=== PATIENT | male | born 1955 | race Caucasian/White ===

== ENCOUNTER 2017-02-13 09:22 | Inpatient (IN) | payer SELFPAY ==
[2017-02-13] VITALS (12 sets, daily range): BP systolic 113–140; BP diastolic 77–92; PULSE 98–116; RESP 14–28; TEMP 97.6–98.5; O2SAT 93–100
[~2017-02-13] VITALS: Ht 177.8 cm; Wt 74.2 kg
[2017-02-13 09:48] LABS: BLOOD GAS BASE EXCESS -4.8 mmol/L (-2-2); BLOOD GAS HCO3 19 mmol/L (22-26); BLOOD GAS METHEMOGLOBIN 0.6 % (0-2); BLOOD GAS O2 HGB SATURATION 93 % (90-100); BLOOD GAS OXYGEN CONTENT 24.6 Vol % (12.0-20.0); BLOOD GAS PCO2 29 mmHg (38-42); BLOOD GAS PO2 74 mmHG (61-120); BLOOD GAS TOTAL HGB 18.8 G/DL (12.0-16.0); TEMP CORR TO 98.6
[2017-02-13 09:49] LABS: CRITICAL VALUE NO; DRAW SITE LT RADIAL; LITER FLOW 4 L/M; NUMBER OF ARTERIAL PUNCTURES 2; OXYGEN DEVICE NASAL CANNULA; STAT YES; ULNAR PULSE PRESENT
[2017-02-13 09:53] LABS: AUTOMATED NEUTROPHIL # 16.8 TH/MM3 (1.8-7.7); BASOPHIL % 0.2 % (0.0-2.0); HEMATOCRIT 61.7 % (39.0-51.0); LYMPH % 6.7 % (9.0-44.0); LYMPHOCYTE # 1.4 TH/MM3 (1.0-4.8); MEAN CELL VOLUME 91.5 FL (80.0-100.0); MEAN CORPUSCULAR HEMOGLOBIN 30.1 PG (27.0-34.0); MEAN CORPUSCULAR HGB CONC 32.9 % (32.0-36.0); MONO % 12.1 % (0.0-8.0); PLATELET COUNT 180 TH/MM3 (150-450); RED BLOOD COUNT 6.74 MIL/MM3 (4.50-5.90); RED CELL DISTRIBUTION WIDTH 14.1 % (11.6-17.2); WHITE BLOOD COUNT 20.8 TH/MM3 (4.0-11.0)
[2017-02-13 09:56] LABS: HEMO FLAGS AUTO DIFF
--- NOTE | 2017-02-13 09:56 | RADRPT ---
EXAM DATE/TIME: 02/13/2017 09:48 [facility] COMPARISON: No previous studies available for comparison. INDICATIONS : Unresponsive MEDICAL HISTORY : Unresponsive SURGICAL HISTORY : Unresponsive ENCOUNTER: Initial ACUITY: 1 day PAIN SCORE: Non-responsive. LOCATION: Bilateral chest FINDINGS: A single view of the chest demonstrates the lungs to be symmetrically aerated without evidence of mas s, infiltrate or effusion. The cardiomediastinal contours are unremarkable. Degenerative changes ab out left shoulder. CONCLUSION: No acute disease. Azeem Hamilton MD FACR on February 13, 2017 at 9:54 Board Certified Radiologist. This report was verified electronically.
[2017-02-13 10:03] LABS: BLOOD, URINE MOD (NEG); COMMENT (UR) CATH-CULT NOT IND; CULTURE IF INDICATED CATH CULTURE NOT IND; GLUCOSE,URINE NEG (NEG); KETONE, URINE 10 mg/dL (NEG); MUCUS URINE FEW /lpf (OCC); NITRITE,URINE NEG (NEG); URINE COLOR YELLOW (YELLW/STRAW)
[2017-02-13 10:03] LABS: APTT (PATIENT) 22.4 SEC (24.3-30.1); INTERNATIONAL NORMALIZED RATIO 1.1 RATIO; PROTHROMBIN TIME - PATIENT 12.6 SEC (9.8-11.6)
[2017-02-13 10:16] LABS: ANION GAP 11 MEQ/L (5-15); AST (GOT) 18 U/L (15-37); BICARBONATE 24.8 MEQ/L (21.0-32.0); BLOOD UREA NITROGEN 74 MG/DL (7-18); CHLORIDE 113 MEQ/L (98-107); GLOMERULAR FILTRATION RATE 43 ML/MIN (>89); SODIUM (NA) 149 MEQ/L (136-145)
[2017-02-13 10:22] LABS: ALKALINE PHOSPHATASE 98 U/L (45-117); ALT (GPT) 28 U/L (12-78); TOTAL BILIRUBIN ADULT 1.3 MG/DL (0.2-1.0)
[2017-02-13 10:23] LABS: NEUTROPHIL # MANUAL DIFF 16.6 TH/MM3 (1.8-7.7); POLYS (SEG NEUTROPHILS) 80 % (16-70); WBC DIFF SAMPLE 100
[2017-02-13 10:24] LABS: CREATINE KINASE 65 U/L (39-308); PLATELET ESTIMATE SMEAR NORMAL (NORMAL); PLATELET MORPHOLOGY NORMAL (NORMAL); SCAN/DIFF FINAL DIFF MANUAL
--- NOTE | 2017-02-13 10:40 | RADRPT ---
EXAM DATE/TIME: 02/13/2017 10:23 [facility] COMPARISON: No previous studies available for comparison. INDICATIONS : Altered mental status. RADIATION DOSE: 34.65 CTDIvol (mGy) MEDICAL HISTORY : Non-responsive. SURGICAL HISTORY : Non-responsive. ENCOUNTER: Initial ACUITY: 1 day PAIN SCALE: Non-responsive LOCATION: cranial TECHNIQUE: Multiple contiguous axial images were obtained of the head. Using automated exposure control and adj ustment of the mA and/or kV according to patient size, radiation dose was kept as low as reasonably a chievable to obtain optimal diagnostic quality images. DICOM format image data is available electro nically for review and comparison. FINDINGS: Large bland apparent left MCA infarct is present with significant localized mass effect. There is 1. 7 cm left to right shift. Minimal lenticulostriate hemorrhage is evident. The right hemisphere is u nremarkable. Posterior fossa appears normal. CONCLUSION: Large subacute infarct left MCA territory with with lenticulostriate hemorrhage hemor rhage. Significant mass effect is evident. This is probably 3-5 day is old. Azeem Hamilton MD FACR on February 13, 2017 at 10:35 Board Certified Radiologist. This report was verified electronically.
--- NOTE | 2017-02-13 10:51 | PD ---
HPI Chief Complaint: Neuro Symptoms/ Deficits Time Seen by Provider: 09:32 Travel History International Travel<30 days: No (UNABLE TO ASSESS ) Contact w/Intl Traveler<30days: No (UNABLE TO ASSESS ) Traveled to known affect area: No (UNABLE TO ASSESS ) History of Present Illness HPI This is a reported 62-year-old male with a questionable history of stroke disorder, who presents via EMS after he was found in his apartment. He was last seen Thursday. According to his neighbors who called police for well-being check, he is usually awake early in gets his paper. His paper had not been picked up since Thursday. The patient is nonverbal and unable to give any history. We do not have a name. One of the floor nurses came down to state that her boyfriend had called 911. When paramedics arrived, they found him laying in bed in a pool of urine. His hand and entire right side of his back is excoriated and blanched because of laying in wet urine. The patient is awake but nonverbal. He will somewhat acknowledge you but will try to follow commands but is having difficulty. PFSH Social History Tobacco Use: No (unknown) Allergies-Medications (Allergen,Severity, Reaction): Coded Allergies: Unable to Assess (Verified Allergy, Unknown, 02/13/17) Review of Systems ROS Limitations: Clinical Condition (unable to obtain review of systems secondary to the patient's current clinical condition.), Altered Mental Status Except as stated in HPI: all other systems reviewed are Neg Physical Exam Narrative GENERAL: Well-developed well-nourished male who is nonverbal and awake. SKIN: Patient has contracted right hand. There is blanching of his hand and entire right side from laying in urine. HEAD: Atraumatic. Normocephalic. EYES: Pupils equal and round at 2. No scleral icterus. No injection or drainage. ENT: No nasal bleeding or discharge. Mucous membranes are dry. NECK: Trachea midline. No JVD. CARDIOVASCULAR: Tachycardic with a rate in the low 100s. No murmur appreciated. RESPIRATORY: No accessory muscle use. Clear to auscultation. Breath sounds equal bilaterally and tachypnea. GASTROINTESTINAL: Abdomen soft, non-tender, nondistended. MUSCULOSKELETAL: Contracted right upper extremity/hand. Blanching as above. NEUROLOGICAL: Awake and nonverbal. The patient is not moving his right upper or right lower extremity. He is moving his left upper extremity and left lower extremity and attempts to move to command. Data Data Last Documented VS Vital Signs Date Time Temp Pulse Resp B/P (MAP) Pulse Ox O2 Delivery O2 Flow Rate FiO2 02/13/17 10:51 98 22 128/85 (99) 100 Nasal Cannula 4.00 02/13/17 09:25 97.6 Orders Orders Electrocardiogram (02/13/17:33) Complete Blood Count With Diff (02/13/17) Comprehensive Metabolic Panel (02/13/17) Prothrombin Time / Inr (Pt) (02/13/17) Act Partial Throm Time (Ptt) (02/13/17) Lactic Acid Sepsis Protocol (02/13/17) Ckmb (Isoenzyme) Profile (02/13/17:) Troponin I (02/13/17:) Urinalysis - C+S If Indicated (02/13/17) Blood Culture (02/13/17:) Chest, Single Ap (02/13/17:) Arterial Blood Gas (Abg) (02/13/17:) Blood Glucose (02/13/17:) Ecg Monitoring (02/13/17) Iv Access Insert/Monitor (02/13/17:) Oximetry (02/13/17:33) Oxygen Administration (02/13/17:) Urinary Catheter Insert/Apply (02/13/17:) Ct Brain W/O Iv Contrast(Rout) (02/13/17:33) Labs Laboratory Tests Test 02/13/17:33 02/13/17 09:35 02/13/17 09:40 02/13/17 09:45 Blood Gas Puncture Site LT RADIAL Blood Gas Patient Temperature 98.6 Blood Gas HCO3 19 mmol/L Blood Gas Base Excess -4.8 mmol/L Blood Gas Oxygen Saturation 93 % Arterial Blood pH 7.43 Arterial Blood Partial Pressure CO2 29 mmHg Arterial Blood Partial Pressure O2 74 mmHG Arterial Blood Oxygen Content 24.6 Vol % Arterial Blood Carboxyhemoglobin 1.0 % Arterial Blood Methemoglobin 0.6 % Blood Gas Hemoglobin 18.8 G/DL Oxygen Delivery Device NASAL CANNULA Blood Gas Liter Flow 4 L/M White Blood Count 20.8 TH/MM3 Red Blood Count 6.74 MIL/MM3 Hemoglobin 20.3 GM/DL Hematocrit 61.7 % Mean Corpuscular Volume 91.5 FL Mean Corpuscular Hemoglobin 30.1 PG Mean Corpuscular Hemoglobin Concent 32.9 % Red Cell Distribution Width 14.1 % Platelet Count 180 TH/MM3 Mean Platelet Volume 8.5 FL Neutrophils (%) (Auto) 81.0 % Lymphocytes (%) (Auto) 6.7 % Monocytes (%) (Auto) 12.1 % Eosinophils (%) (Auto) 0.0 % Basophils (%) (Auto) 0.2 % Neutrophils # (Auto) 16.8 TH/MM3 Lymphocytes # (Auto) 1.4 TH/MM3 Monocytes # (Auto) 2.5 TH/MM3 Eosinophils # (Auto) 0.0 TH/MM3 Basophils # (Auto) 0.0 TH/MM3 CBC Comment AUTO DIFF Differential Total Cells Counted 100 Neutrophils % (Manual) 80 % Lymphocytes % 9 % Monocytes % 11 % Neutrophils # (Manual) 16.6 TH/MM3 Differential Comment FINAL DIFF MANUAL Platelet Estimate NORMAL Platelet Morphology Comment NORMAL Prothrombin Time 12.6 SEC Prothromb Time International Ratio 1.1 RATIO Activated Partial Thromboplast Time 22.4 SEC Blood Urea Nitrogen 74 MG/DL Creatinine 1.42 MG/DL Random Glucose 142 MG/DL Total Protein 8.1 GM/DL Albumin 3.1 GM/DL Calcium Level 9.1 MG/DL Alkaline Phosphatase 98 U/L Aspartate Amino Transf (AST/SGOT) 18 U/L Alanine Aminotransferase (ALT/SGPT) 28 U/L Total Bilirubin 1.3 MG/DL Sodium Level 149 MEQ/L Potassium Level 5.0 MEQ/L Chloride Level 113 MEQ/L Carbon Dioxide Level 24.8 MEQ/L Anion Gap 11 MEQ/L Estimat Glomerular Filtration Rate 43 ML/MIN Total Creatine Kinase 65 U/L Troponin I 0.20 NG/ML Lactic Acid Level 3.4 mmol/L Urine Color YELLOW Urine Turbidity CLEAR Urine pH 6.0 Urine Specific [place] 1.031 Urine Protein 100 mg/dL Urine Glucose (UA) NEG mg/dL Urine Ketones 10 mg/dL Urine Occult Blood MOD Urine Nitrite NEG Urine Bilirubin NEG Urine Urobilinogen 2.0 MG/DL Urine Leukocyte Esterase NEG Urine RBC 5 /hpf Urine WBC 3 /hpf Urine Mucus FEW /lpf Microscopic Urinalysis Comment CATH-CULT NOT IND MDM Medical Decision Making Medical Screen Exam Complete: Yes Emergency Medical Condition: Yes Differential Diagnosis Embolic versus hemorrhagic CVA versus metabolic derangement versus sepsis Narrative Course Reported 62-year-old male presents after being last seen Thursday. The patient apparently was found in a puddle of urine in bed. The patient is awake however nonverbal. The patient has a large left MCA stroke with lenticular striate hemorrhage. Patient is hemoconcentrated. He is hypernatremic. He has acute kidney injury. His white blood cell count is 21,000. Case was discussed with Dr. Jatinder Rolle, slip presser, who agrees to admit the patient to his service. He has been given 2 L of IVD fluid. He'll be admitted to the surgical intensive care unit. Critical Care Narrative Aggregate critical care time was 45 minutes. Time to perform other separately billable procedures was not included in the critical care time. My time did not include minutes spent treating any other patients simultaneously or on activities that did not directly contribute to the patient's treatment. The services I provided to this patient were to treat and/or prevent clinically significant deterioration that could result in: I provided critical care services requiring my management, as noted below: Chart data review, documentation time, medication orders and management, vital sign assessments/reviewing monitor data, ordering and reviewing lab tests, ordering and interpreting/reviewing x-rays and diagnostic studies, care of the patient and discussion of the patient with the admitting physicians. Sepsis Criteria SIRS Criteria (2 or more): Heart rate over 90, RR > 20 or PaCO2 < 32, WBC > 76699, < 4000 or > 10% bands Severe Sepsis (+one): Organ Dysfunction Diagnosis Primary Impression: large left MCA CVA with hemorrhage Additional Impressions: Leukocytosis Acute renal failure Acute hypernatremia Admitting Information Admitting Physician Requests: Admit Chacorta Martinez MD Feb 13, 2017 10:51
[2017-02-13] MEDS ORDERED: CHLORHEXIDINE GLUCONATE 2 % 1 PACK (2 CLOTHS) TOP PRN (11:00)
[2017-02-13] MEDS ORDERED: MISCELLANEOUS NURSING INFORMATION XX SCH (11:00)
[2017-02-13] MEDS ORDERED: SENNOSIDES 8.6 MG TAB PO PRN (11:00)
[2017-02-13] MEDS ORDERED: MAGNESIUM HYDROXIDE SUSP 30 ML CUP PO PRN (11:00)
[2017-02-13] MEDS ORDERED: ACETAMINOPHEN 325 MG TAB PO PRN (11:00)
[2017-02-13] MEDS ORDERED: ONDANSETRON HCL 4 MG/2 ML VIAL IV PUSH PRN (11:00)
[2017-02-13] MEDS ORDERED: RESP: ALBUTEROL 2.5 MG/IPRATROPIUM 0.5 MG NEB (PRN) INH (11:00)
[2017-02-13] MEDS ORDERED: LACTULOSE SYRUP 20 GM/30 ML CUP PO PRN (11:00)
[2017-02-13] MEDS ORDERED: BISACODYL 10 MG SUPP RECTAL PRN (11:00)
[2017-02-13] MEDS ORDERED: PROPOFOL 1000 MG/100 ML INJ 100 ML IV PRN (11:00)
[2017-02-13 11:47] LABS: LACTIC ACID GHOST NOT REPORTABLE
[2017-02-13] MEDS ORDERED: HEPARIN SODIUM - SQ 10,000 UNITS/ML VIAL SQ SCH (12:00)
--- NOTE | 2017-02-13 12:25 | HHI.HP ---
[facility] Service Critical Care Medicine Primary Care Physician Unknown Admission Diagnosis Left MCA infart, dehydration, hypernatremia Diagnosis: (1) Left acute arterial ischemic stroke, MCA (middle cerebral artery) Diagnosis: Principal (2) Acute hypernatremia Diagnosis: Principal (3) Acute renal failure Diagnosis: Principal (4) Leukocytosis Diagnosis: Principal Chief Complaint: Briought in by EMS. Travel History International Travel<30 Days: No (UNABLE TO ASSESS ) Contact w/Intl Traveler <30 Da: No (UNABLE TO ASSESS ) Traveled to Known Affected Are: No (UNABLE TO ASSESS ) History of Present Illness Nonverbal, dishevelled man found at wellness check after not being seen for 5 days. Unable to move right side. CT head reveals several day old left hemispheric stroke. Found in urine and unable to follow commands. No additional information available, no family. Review of Systems ROS Unobtainable. Past Family Social History Allergies: Coded Allergies: Unable to Assess (Verified Allergy, Unknown, 02/13/17) Past Medical History Social History Tobacco Use: No (unknown) Allergies-Medications Allergies-Medications (Allergen,Severity, Reaction): Coded Allergies: Unable to Assess (Verified Allergy, Unknown, 02/13/17) Physical Exam Vital Signs Vital Signs Date Time Temp Pulse Resp B/P (MAP) Pulse Ox O2 Delivery O2 Flow Rate FiO2 02/13/17 12:00 109 14 130/82 (98) 98 Nasal Cannula 4.00 02/13/17 10:51 98 22 128/85 (99) 100 Nasal Cannula 4.00 02/13/17 09:42 24 99 Nasal Cannula 4.00 02/13/17 09:37 4.00 02/13/17 09:30 94 Nasal Cannula 4.00 02/13/17 09:25 97.6 115 28 140/90 (107) Physical Exam Gen: Nonverbal. Head: Atraumatic. Neck: Supple, airway patent. Lungs: Few mobile secretions, good alva air movement. Heart: NL S1S2, RRR. Abdomen: Nondistended, soft. No guarding. Extremities: Warm, well perfused. Red skin right side. Neuro: Right paresis. No speech. JEMMA at 2 mm. Moves left arm and leg spontaneously. Laboratory Laboratory Tests Test 02/13/17 09:33 02/13/17 09:35 02/13/17 09:40 02/13/17 09:45 Blood Gas Puncture Site LT RADIAL Blood Gas Patient Temperature 98.6 Blood Gas HCO3 19 Blood Gas Base Excess -4.8 Blood Gas Oxygen Saturation 93 Arterial Blood pH 7.43 Arterial Blood Partial Pressure CO2 29 Arterial Blood Partial Pressure O2 74 Arterial Blood Oxygen Content 24.6 Arterial Blood Carboxyhemoglobin 1.0 Arterial Blood Methemoglobin 0.6 Blood Gas Hemoglobin 18.8 Oxygen Delivery Device NASAL CANNULA Blood Gas Liter Flow 4 White Blood Count 20.8 Red Blood Count 6.74 Hemoglobin 20.3 Hematocrit 61.7 Mean Corpuscular Volume 91.5 Mean Corpuscular Hemoglobin 30.1 Mean Corpuscular Hemoglobin Concent 32.9 Red Cell Distribution Width 14.1 Platelet Count 180 Mean Platelet Volume 8.5 Neutrophils (%) (Auto) 81.0 Lymphocytes (%) (Auto) 6.7 Monocytes (%) (Auto) 12.1 Eosinophils (%) (Auto) 0.0 Basophils (%) (Auto) 0.2 Neutrophils # (Auto) 16.8 Lymphocytes # (Auto) 1.4 Monocytes # (Auto) 2.5 Eosinophils # (Auto) 0.0 Basophils # (Auto) 0.0 CBC Comment AUTO DIFF Differential Total Cells Counted 100 Neutrophils % (Manual) 80 Lymphocytes % 9 Monocytes % 11 Neutrophils # (Manual) 16.6 Differential Comment FINAL DIFF MANUAL Platelet Estimate NORMAL Platelet Morphology Comment NORMAL Prothrombin Time 12.6 Prothromb Time International Ratio 1.1 Activated Partial Thromboplast Time 22.4 Blood Urea Nitrogen 74 Creatinine 1.42 Random Glucose 142 Total Protein 8.1 Albumin 3.1 Calcium Level 9.1 Alkaline Phosphatase 98 Aspartate Amino Transf (AST/SGOT) 18 Alanine Aminotransferase (ALT/SGPT) 28 Total Bilirubin 1.3 Sodium Level 149 Potassium Level 5.0 Chloride Level 113 Carbon Dioxide Level 24.8 Anion Gap 11 Estimat Glomerular Filtration Rate 43 Total Creatine Kinase 65 Troponin I 0.20 Lactic Acid Level 3.4 Urine Color YELLOW Urine Turbidity CLEAR Urine pH 6.0 Urine Specific [place] 1.031 Urine Protein 100 Urine Glucose (UA) NEG Urine Ketones 10 Urine Occult Blood MOD Urine Nitrite NEG Urine Bilirubin NEG Urine Urobilinogen 2.0 Urine Leukocyte Esterase NEG Urine RBC 5 Urine WBC 3 Urine Mucus FEW Microscopic Urinalysis Comment CATH-CULT NOT IND Date/Time Source Procedure Growth Status 02/13/17 09:40 Blood Peripheral Aerobic Blood Culture Pending Received 02/13/17 09:40 Blood Peripheral Anaerobic Blood Culture Pending Received Result Diagram: 02/13/17 0935 02/13/17 0935 Caprini VTE Risk Assessment Caprini VTE Risk Assessment: Mod/High Risk (score >= 2) Caprini Risk Assessment Model Point Value = 1 Point Value = 2 Point Value = 3 Point Value = 5 Age 41-60 Minor surgery BMI > 25 kg/m2 Swollen legs Varicose veins or History of unexplained or recurrent spontaneous Oral contraceptives or hormone replacement Sepsis (< 1 month) Serious lung disease, including pneumonia (< 1 month) Abnormal pulmonary function Acute myocardial infarction Congestive heart failure (< 1 month) History of inflammatory bowel disease Medical patient at bed rest Age 61-74 Arthroscopic surgery Major open surgery (> 45 min) Laparoscopic surgery (> 45 min) Malignancy Confined to bed (> 72 hours) Immobilizing plaster cast Central venous access Age >= 75 History of VTE Family history of VTE Factor V Leiden Prothrombin [id number] Lupus anticoagulant Anticardiolipin antibodies Elevated serum homocysteine Heparin-induced thrombocytopenia Other congenital or acquired thrombophilia Stroke (< 1 month) Elective arthroplasty Hip, pelvis, or leg fracture Acute spinal cord injury (< 1 month) Prophylaxis Regimen Total Risk Factor Score Risk Level Prophylaxis Regimen 0-1 Low Early ambulation 2 Moderate Order ONE of the following: *Sequential Compression Device (SCD) *Heparin 5000 units SQ BID 3-4 Higher Order ONE of the following medications: *Heparin 5000 units SQ TID *Enoxaparin/Lovenox 40 mg SQ daily (WT < 150 kg, CrCl > 30 mL/min) *Enoxaparin/Lovenox 30 mg SQ daily (WT < 150 kg, CrCl > 10-29 mL/min) *Enoxaparin/Lovenox 30 mg SQ BID (WT < 150 kg, CrCl > 30 mL/min) AND/OR *Sequential Compression Device (SCD) 5 or more Highest Order ONE of the following medications: *Heparin 5000 units SQ TID (Preferred with Epidurals) *Enoxaparin/Lovenox 40 mg SQ daily (WT < 150 kg, CrCl > 30 mL/min) *Enoxaparin/Lovenox 30 mg SQ daily (WT < 150 kg, CrCl > 10-29 mL/min) *Enoxaparin/Lovenox 30 mg SQ BID (WT < 150 kg, CrCl > 30 mL/min) AND *Sequential Compression Device (SCD) Assessment and Plan Problem List: (1) Left acute arterial ischemic stroke, MCA (middle cerebral artery) ICD Code: I63.512 - Cerebral infarction due to unspecified occlusion or stenosis of left middle cerebral artery Status: Acute (2) Acute renal failure ICD Code: N17.9 - Acute kidney failure, unspecified Status: Acute (3) Acute hypernatremia ICD Code: E87.0 - Hyperosmolality and hypernatremia Status: Acute (4) Leukocytosis ICD Code: D72.829 - Elevated white blood cell count, unspecified Status: Acute Assessment and Plan Plan: 1. Out of tPA window by > 48 hours. 2. Aggressive hydration with NS. 3. HOB up 30 degrees. 4. Anticipate continued cerebral swelling. 5. Follow renal function response to hydration. 6. Hold anticoagulation. 7. Chemical DVT prophylaxis is OK. 8. Pepcid. 9. NG tube. 10. Followup CT after 24 hours. Overall impression: Patient is critically ill with large left hemispheric stroke and right sided paresis. Cerebral edema is worrisome. From exam likely dominant hemisphere is involved. Critical care 44 mins Chacorta Torres MD Feb 13, 2017 12:25
[2017-02-13] MEDS: SODIUM CHLOR 0.9% 1000 ML INJ 1,000 ML IV SCH ×2 (12:58→20:52)
[2017-02-13] MEDS ORDERED: GLUCAGON 1 MG/ML VIAL OTHER PRN (16:45)
[2017-02-13] MEDS ORDERED: DEXTROSE 50% IN WATER 50 ML VIAL(D50) IV PUSH PRN (16:45)
[2017-02-13] MEDS ORDERED: SODIUM CHLORIDE 0.9% FLUSH 5 ML FLUSH IV FLUSH PRN (16:45)
[2017-02-13] MEDS: INSULIN ASPART SUPPLEMENTAL SCALE SQ SCH ×2 (17:00→20:52)
--- NOTE | 2017-02-13 17:19 | PD.CONS ---
HPI Consult Requested By Dr. Rolle Reason for Consult Left hemisphere CVA Primary Care Physician Unknown History of Present Illness I was asked to see this gentleman who was admitted with right hemiplegia. He was brought in by EMS after having been found in his apartment not having been seen for several days by his local wellness Center. On evaluation here CT scan of the brain shows a large well-developed left MCA territory infarct which appears several days old. There is approximately 1/2 cm of left to right frontal midline shift. No significant edema surrounding the infarct at this time. Patient is globally aphasic and unable to give any history Review of Systems Unobtainable Past Family Social History Allergies: Coded Allergies: Unable to Assess (Verified Allergy, Unknown, 02/13/17) Past Medical History Unobtainable Past Surgical History Unobtainable Reported Medications Unobtainable Physical Exam Vital Signs Vital Signs Date Time Temp Pulse Resp B/P (MAP) Pulse Ox O2 Delivery O2 Flow Rate FiO2 02/13/17 16:00 112 02/13/17 14:39 100 02/13/17 14:00 98.0 112 20 129/92 (104) 97 02/13/17 14:00 112 02/13/17 14:00 97 Nasal Cannula 4.00 02/13/17 12:00 109 14 130/82 (98) 98 Nasal Cannula 4.00 02/13/17 10:51 98 22 128/85 (99) 100 Nasal Cannula 4.00 02/13/17 09:42 24 99 Nasal Cannula 4.00 02/13/17 09:37 4.00 02/13/17 09:30 94 Nasal Cannula 4.00 02/13/17 09:25 97.6 115 28 140/90 (107) Physical Exam General: This is a well-developed well-nourished nourished gentleman. He is very minimally lethargic and easily arousable to vocal stimulation. HEENT: Head is atraumatic and normocephalic. Pupils are 4 mm reactive. Gaze is midline and extraocular movements are intact. Neck: Supple with no meningeal signs. Neurological: Global aphasia. Patient has right-sided facial droop with decreased nasolabial fold. Motor function shows right hemiplegia. Patient moves left upper extremity spontaneously and appropriately to painful stimulation. Withdrawal in the left lower extremity to painful stimulation. Reflexes hypoactive. Laboratory Laboratory Tests Test 02/13/17 09:33 02/13/17 09:35 02/13/17 09:40 02/13/17 09:45 Blood Gas Puncture Site LT RADIAL Blood Gas Patient Temperature 98.6 Blood Gas HCO3 19 Blood Gas Base Excess -4.8 Blood Gas Oxygen Saturation 93 Arterial Blood pH 7.43 Arterial Blood Partial Pressure CO2 29 Arterial Blood Partial Pressure O2 74 Arterial Blood Oxygen Content 24.6 Arterial Blood Carboxyhemoglobin 1.0 Arterial Blood Methemoglobin 0.6 Blood Gas Hemoglobin 18.8 Oxygen Delivery Device NASAL CANNULA Blood Gas Liter Flow 4 White Blood Count 20.8 Red Blood Count 6.74 Hemoglobin 20.3 Hematocrit 61.7 Mean Corpuscular Volume 91.5 Mean Corpuscular Hemoglobin 30.1 Mean Corpuscular Hemoglobin Concent 32.9 Red Cell Distribution Width 14.1 Platelet Count 180 Mean Platelet Volume 8.5 Neutrophils (%) (Auto) 81.0 Lymphocytes (%) (Auto) 6.7 Monocytes (%) (Auto) 12.1 Eosinophils (%) (Auto) 0.0 Basophils (%) (Auto) 0.2 Neutrophils # (Auto) 16.8 Lymphocytes # (Auto) 1.4 Monocytes # (Auto) 2.5 Eosinophils # (Auto) 0.0 Basophils # (Auto) 0.0 CBC Comment AUTO DIFF Differential Total Cells Counted 100 Neutrophils % (Manual) 80 Lymphocytes % 9 Monocytes % 11 Neutrophils # (Manual) 16.6 Differential Comment FINAL DIFF MANUAL Platelet Estimate NORMAL Platelet Morphology Comment NORMAL Prothrombin Time 12.6 Prothromb Time International Ratio 1.1 Activated Partial Thromboplast Time 22.4 Blood Urea Nitrogen 74 Creatinine 1.42 Random Glucose 142 Total Protein 8.1 Albumin 3.1 Calcium Level 9.1 Alkaline Phosphatase 98 Aspartate Amino Transf (AST/SGOT) 18 Alanine Aminotransferase (ALT/SGPT) 28 Total Bilirubin 1.3 Sodium Level 149 Potassium Level 5.0 Chloride Level 113 Carbon Dioxide Level 24.8 Anion Gap 11 Estimat Glomerular Filtration Rate 43 Total Creatine Kinase 65 Troponin I 0.20 Lactic Acid Level 3.4 Urine Color YELLOW Urine Turbidity CLEAR Urine pH 6.0 Urine Specific [place] 1.031 Urine Protein 100 Urine Glucose (UA) NEG Urine Ketones 10 Urine Occult Blood MOD Urine Nitrite NEG Urine Bilirubin NEG Urine Urobilinogen 2.0 Urine Leukocyte Esterase NEG Urine RBC 5 Urine WBC 3 Urine Mucus FEW Microscopic Urinalysis Comment CATH-CULT NOT IND Test 02/13/17 12:48 02/13/17 14:30 Lactic Acid Level 2.4 Date/Time Source Procedure Growth Status 02/13/17 09:40 Blood Peripheral Aerobic Blood Culture Pending Received 02/13/17 09:40 Blood Peripheral Anaerobic Blood Culture Pending Received Result Diagram: 02/13/1735 02/13/1735 Assessment and Plan Assessment and Plan Assessment: Well evolved left MCA territory infarct with mass effect. Patient remains awake and responsive with right hemiplegia. Recommendations: no neurosurgical intervention is indicated or will likely be necessary given the subacute nature of the infarct on CT scan. Neurosurgery will sign off. Please reconsult as needed. Klaus De Leon MD Feb 13, 2017 17:19
--- NOTE | 2017-02-13 17:52 | MB ---
cc: CHIQUIS NIEVES DATE OF CONSULTATION 02/13/17 REASON FOR CONSULTATION Stroke. HISTORY OF PRESENT ILLNESS This patient was found minimally responsive. He was found to minimal movement of the right side. He was found earlier today. Apparently, was last seen several days ago. PAST MEDICAL HISTORY Unknown. MEDICATIONS Current medications in the hospital: 1. Pepcid IV. 2. Senna. 3. Heparin 5000 units subcu b.i.d. 4. Tylenol p.r.n. 5. Zofran p.r.n. 6. Senokot. 7. Lactulose. NEUROLOGIC EXAMINATION VITAL SIGNS: Blood pressure is 129/92, pulse 112, he is in sinus rhythm, respirations 20, temperature 98 degrees. NEURO: Higher cortical function he is alert appearing but does not follow commands. No spontaneous speech, does not repeat. He is global aphasic. He neglects the right side. Cranial nerves: Left gaze preference. 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 The pupils are 2 mm symmetrical, reactive. On motor exam he is 0/5 strength of the right arm and right leg. He moves the left side normally. Reflexes are symmetric. IMAGING STUDIES CT of the brain shows a very large left MCA stroke appearing subacute with lenticulostriate hemorrhage. There is significant mass effect as well with 1.7 cm [id number]-hj-[id number] shift. LABORATORY DATA The white count is 20,800, hemoglobin 20.3, hematocrit 61.7%, platelet count 180,000. Sodium 139, potassium 5, chloride 113, CO2 of 24.1. The BUN is 24, creatinine 1.42, GFR is 43, glucose 142. AST 18, ALT 28, alk phos 98. PT 12.6, INR 1.1, APTT 22.4. Urinalysis, the pH is 6, specific gravity 1.031, ketones are 10. IMPRESSION Large left MCA stroke. RECOMMENDATIONS Start aspirin rectally 300 milligrams daily. Will check also MRI of the brain, MRA, carotid ultrasound, echocardiogram. Monitor cardiac telemetry, rule out atrial fibrillation. He does have an elevated hematocrit. We will request hematology consult as well. MD THOR Chairez/YUE /4:34 PM /5:44 PM
--- NOTE | 2017-02-13 17:56 | EKG ---
Date Performed: 02/13/2017 Time Performed: 10:42:34 PTAGE: 89 years EKG: Sinus rhythm RIGHT ATRIAL ENLARGEMENT LEFT ATRIAL ENLARGEMENT POSSIBLE LEFT VENTRICULAR HYPERTROPHY NONSPECIFIC S T & T-WAVE ABNORMALITY ABNORMAL ECG INTERPRETATION BASED ON A DEFAULT AGE OF 40 YEARS PREVIOUS TRACING : 02/13/2017 09.55 DOCTOR: Luis Fernando Schmidt Interpretating Date/Time 02/13/2017 17:55:23
[2017-02-13] MEDS: ASPIRIN 300 MG SUPP RECTAL SCH (18:00)
[2017-02-13 18:07] LABS: HEMOGLOBIN A1a 1.1 %; HEMOGLOBIN A1b 1.8 %; HEMOGLOBIN Ao 83.8 %; HEMOGLOBIN LA1C 2.6 %; HEMOGLOBIN P3 5.9 %
[2017-02-13 19:12] LABS: TRANSFERRIN 145 MG/DL (200-360); TRANSFERRIN IRON PROFILE 145 MG/DL (200-360)
--- NOTE | 2017-02-13 19:43 | RADRPT ---
EXAM DATE/TIME: 02/13/2017 18:30 [facility] COMPARISON: No previous studies available for comparison. INDICATIONS : Cerebrovascular accident. MEDICAL HISTORY : Cerebrovascular accident. SURGICAL HISTORY : Unable to obtain. ENCOUNTER: Initial ACUITY: 1 day PAIN SCORE: Nonresponsive. LOCATION: Bilateral neck PEAK SYSTOLIC VELOCITIES (cm/sec): ICA/CCA RATIO: Right: 1.2 Left: ICA: Right: 74 Left: CCA: Right: 60 Left: 38 ECA: Right: 71 Left: VERTEBRAL: Right: 43 antegrade Left: 53 antegrade Elevated flow velocities and ICA/CCA ratios have been found to correlate with increased degrees of vessel stenosis, calculated as percentage of diameter relative to a normal segment of distal ICA/CCA FINDINGS: RIGHT CAROTID: No significant stenosis is visualized. The waveforms are within normal limits. LEFT CAROTID: There is occlusion of the extracranial ICA as well as ECA. VERTEBRAL ARTERIES: Antegrade flow is seen in both vertebral arteries. MISCELLANEOUS: None. CONCLUSION: 1. Occluded left ICA and ECA. 2. Patent right carotid. 3. Antegrade flow involving both vertebral arteries. Luther Bennett Jr., MD on February 13, 2017 at 19:39 Board Certified Radiologist. This report was verified electronically.
[2017-02-13] MEDS: DOCUSATE SODIUM 50 MG/SENNA 8.6 MG TAB PO SCH (20:51)
[2017-02-13] MEDS: FAMOTIDINE 20 MG/2 ML VIAL IV PUSH SCH (20:51)
[2017-02-13] MEDS: SODIUM CHLORIDE 0.9% FLUSH 5 ML FLUSH IV FLUSH SCH (21:00)
[2017-02-14] VITALS (11 sets, daily range): BP systolic 113–130; BP diastolic 74–93; PULSE 96–114; RESP 24–31; TEMP 98.2–99.3; O2SAT 91–98
[2017-02-14 00:05] LABS: AUTOMATED NEUTROPHIL # 17.2 TH/MM3 (1.8-7.7); BASOPHIL % 0.2 % (0.0-2.0); HEMATOCRIT 55.2 % (39.0-51.0); LYMPH % 7.8 % (9.0-44.0); LYMPHOCYTE # 1.7 TH/MM3 (1.0-4.8); MEAN CELL VOLUME 91.9 FL (80.0-100.0); MEAN CORPUSCULAR HEMOGLOBIN 29.9 PG (27.0-34.0); MEAN CORPUSCULAR HGB CONC 32.6 % (32.0-36.0); MONO % 14.3 % (0.0-8.0); NEUT % 77.7 % (16.0-70.0); PLATELET COUNT 124 TH/MM3 (150-450); RED BLOOD COUNT 6.01 MIL/MM3 (4.50-5.90); RED CELL DISTRIBUTION WIDTH 14.2 % (11.6-17.2); WHITE BLOOD COUNT 22.1 TH/MM3 (4.0-11.0)
[2017-02-14 00:07] LABS: HEMO FLAGS AUTO DIFF
[2017-02-14 01:04] LABS: BANDS 1 % (0-6); NEUTROPHIL # MANUAL DIFF 17.2 TH/MM3 (1.8-7.7); POLYS (SEG NEUTROPHILS) 77 % (16-70); WBC DIFF SAMPLE 100
[2017-02-14 01:05] LABS: PLATELET ESTIMATE SMEAR LOW (NORMAL); PLATELET MORPHOLOGY NORMAL (NORMAL)
[2017-02-14 01:06] LABS: OVALOCYTES 1+ (NORMAL); SCAN/DIFF FINAL DIFF MANUAL
[2017-02-14] MEDS: CHLORHEXIDINE GLUCONATE 2 % 1 PACK (2 CLOTHS) TOP SCH ×2 (04:00→19:42)
[2017-02-14] MEDS: SODIUM CHLOR 0.9% 1000 ML INJ 1,000 ML IV SCH (05:49)
[2017-02-14 05:56] LABS: AUTOMATED NEUTROPHIL # 15.1 TH/MM3 (1.8-7.7); HEMATOCRIT 51.4 % (39.0-51.0); LYMPH % 8.6 % (9.0-44.0); LYMPHOCYTE # 1.7 TH/MM3 (1.0-4.8); MEAN CELL VOLUME 91.4 FL (80.0-100.0); MEAN CORPUSCULAR HEMOGLOBIN 30.5 PG (27.0-34.0); MEAN CORPUSCULAR HGB CONC 33.4 % (32.0-36.0); MONO % 12.5 % (0.0-8.0); NEUT % 78.9 % (16.0-70.0); PLATELET COUNT 128 TH/MM3 (150-450); RED BLOOD COUNT 5.62 MIL/MM3 (4.50-5.90); RED CELL DISTRIBUTION WIDTH 14.2 % (11.6-17.2); WHITE BLOOD COUNT 19.1 TH/MM3 (4.0-11.0)
[2017-02-14 06:02] LABS: BICARBONATE 22.1 MEQ/L (21.0-32.0); HDL CHOLESTEROL 38.2 MG/DL (40.0-60.0); MAGNESIUM 2.9 MG/DL (1.5-2.5)
[2017-02-14 06:45] LABS: HEMO FLAGS AUTO DIFF
[2017-02-14] MEDS: INSULIN ASPART SUPPLEMENTAL SCALE SQ SCH ×4 (08:00→20:45)
[2017-02-14] MEDS: SODIUM CHLORIDE 0.9% FLUSH 5 ML FLUSH IV FLUSH SCH ×2 (09:00→20:43)
[2017-02-14] MEDS ORDERED: MAGNESIUM OXIDE 400 MG TAB PO PRN (09:45)
[2017-02-14] MEDS ORDERED: MAGNESIUM SULFATE INJ 2 GM in SODIUM CHLORIDE 0.9% INJ 96 ML IV PRN (09:45)
[2017-02-14] MEDS ORDERED: MAGNESIUM SULFATE INJ 4 GM in SODIUM CHLORIDE 0.9% INJ 92 ML IV PRN (09:45)
[2017-02-14] MEDS ORDERED: POTASSIUM PHOSPHATE MONOBASIC 500 MG TAB PO PRN (09:45)
[2017-02-14] MEDS ORDERED: POTASSIUM CHLOR 20 MEQ PREMIX 100 ML IV PRN ×2 (09:45)
[2017-02-14] MEDS ORDERED: POTASSIUM PHOSPHATE INJ 30 MMOL in SODIUM CHLOR 0.9% 250 ML INJ 250 ML IV PRN (09:45)
[2017-02-14] MEDS ORDERED: POTASSIUM PHOSPHATE MONOBASIC 500 MG TAB PO/TUBE PRN (09:45)
[2017-02-14] MEDS ORDERED: POTASSIUM CHLORIDE 25 MEQ EFFERVESCENT TAB PO PRN (09:45)
[2017-02-14] MEDS ORDERED: POTASSIUM CHLOR 40 MEQ PREMIX 100 ML IV PRN ×2 (09:45)
[2017-02-14] MEDS ORDERED: SODIUM PHOSPHATE INJ 30 MMOL in SODIUM CHLOR 0.9% 250 ML INJ 240 ML IV PRN (09:45)
--- NOTE | 2017-02-14 09:45 | HHI.CCPN ---
Subjective Remarks/Hospital Course Nonverbal, dishevelled man found at wellness check after not being seen for 5 days. Unable to move right side. CT head reveals several day old left hemispheric stroke. Found in urine and unable to follow commands. No additional information available, no family. 02/14: Left internal and external carotid arteries completely occluded ipsilateral to large MCA infarction. No improvement. Cerebral edema present on CT. Objective Vital Signs Date Time Temp Pulse Resp B/P (MAP) Pulse Ox O2 Delivery O2 Flow Rate FiO2 02/14/17 06:00 110 02/14/17 04:00 98.7 25 116/80 (92) 95 02/13/17 20:00 Room Air 02/13/17 14:00 4.00 Intake and Output 02/14/17 02/14/17 02/15/17 08:00 16:00 00:00 Intake Total 1000 ml 197 ml Output Total 500 ml Balance 500 ml 197 ml Result Diagram: 02/14/1741902/14/17 042 Objective Remarks Gen: Nonverbal. Head: Atraumatic. Neck: Supple, airway patent. Lungs: Few mobile secretions, good alva air movement. Heart: NL S1S2, RRR. Abdomen: Nondistended, soft. No guarding. Extremities: Warm, well perfused. Red skin right side and back, macerated in places. Neuro: Right paresis. No speech. JEMMA at 2 mm. Moves left arm and leg spontaneously. A/P Problem List: (1) Left acute arterial ischemic stroke, MCA (middle cerebral artery) ICD Code: I63.512 - Cerebral infarction due to unspecified occlusion or stenosis of left middle cerebral artery Status: Acute (2) Acute renal failure ICD Code: N17.9 - Acute kidney failure, unspecified Status: Acute (3) Acute hypernatremia ICD Code: E87.0 - Hyperosmolality and hypernatremia Status: Acute (4) Leukocytosis ICD Code: D72.829 - Elevated white blood cell count, unspecified Status: Acute Assessment and Plan Plan: 1. Out of tPA window by > 48 hours. 2. Aggressive hydration with NS. 3. HOB up 30 degrees. 4. Anticipate continued cerebral swelling. 5. Follow renal function response to hydration. 6. Hold anticoagulation. 7. Chemical DVT prophylaxis is OK. 8. Pepcid. 9. NG tube. 10. Followup CT after 24 hours. 11. Start tube feeds. 12. Locate any family for guidance on care plan. Overall impression: Patient with large left hemispheric stroke and right sided paresis. Cerebral edema is worrisome. From exam likely dominant hemisphere is involved. Etiology is complete occlusion left extracranial carotid system. Chacorta Torres MD Feb 14, 2017 09:45
[2017-02-14 09:47] LABS: PLATELET ESTIMATE SMEAR LOW (NORMAL); PLATELET MORPHOLOGY NORMAL (NORMAL); SCAN/DIFF AUTO DIFF CONFIRMED
[2017-02-14] MEDS: DOCUSATE SODIUM 50 MG/SENNA 8.6 MG TAB PO SCH ×2 (10:30→20:43)
[2017-02-14] MEDS: FAMOTIDINE 20 MG/2 ML VIAL IV PUSH SCH ×2 (10:31→20:43)
--- NOTE | 2017-02-14 10:37 | RADRPT ---
EXAM DATE/TIME: 02/14/2017 10:03 [facility] COMPARISON: CT BRAIN W/O CONTRAST, February 13, 2017, 10:23. INDICATIONS : Follow up for left side stroke. RADIATION DOSE: 56.35 CTDIvol (mGy) MEDICAL HISTORY : Stroke. SURGICAL HISTORY : None. ENCOUNTER: Subsequent ACUITY: 1 day PAIN SCALE: Non-responsive LOCATION: cranial TECHNIQUE: Multiple contiguous axial images were obtained of the head. Using automated exposure control and adj ustment of the mA and/or kV according to patient size, radiation dose was kept as low as reasonably a chievable to obtain optimal diagnostic quality images. DICOM format image data is available electro nically for review and comparison. FINDINGS: CEREBRUM: Extensive post infarction edema with mass effect and remains evident throughout the left middle cereb ral artery distribution. There is left to right shift of midline structures which has decreased from 1.7 cm to 1.4 cm. And no findings of acute hemorrhage. The left lateral toe remains mildly dilated. POSTERIOR FOSSA: The cerebellum and brainstem are intact. The 4th ventricle is midline. The cerebellopontine angle i s unremarkable. EXTRACRANIAL: The visualized portion of the orbits is intact. SKULL: The calvaria is intact. No evidence of skull fracture. CONCLUSION: 1. Slight decrease in the amount of shift compared to the prior day. 2. Extensive post infarction edema and mass effect throughout the left frontal, remains evident tempo ral and parietal lobes. 3. Significant post infarction edema in the basal ganglia. 4. No evidence of additional infarct or acute hemorrhage. Price Andino MD on February 14, 2017 at 10:28 Board Certified Radiologist. This report was verified electronically.
[2017-02-14] MEDS: ASPIRIN 300 MG SUPP RECTAL SCH (10:55)
[2017-02-14] MEDS: POTASSIUM CHLORIDE INJ 10 MEQ in LACTATED RINGER'S 1000 ML INJ 1,000 ML IV SCH ×2 (10:56→21:02)
--- NOTE | 2017-02-14 14:15 | ECHRPT ---
Indication: CVA/TIA CONCLUSIONS [id number]-[id number] mitral valve regurgitation. There is trace tricuspid valve regurgitation. The left ventricle is not well visualized. Wall thickness is normal. The left ventricular systolic function is hyperdynamic with an estimated ejection fraction in the ra nge of 65- 70%. BP: 116 / 80 HR: Rhythm: Sinus MEASUREMENTS (Male / Female) Normal Values Technical Quality:Poor 2D ECHO LV Diastolic Diameter PLAX 4.4 cm 4.2 - 5.9 / 3.9 - 5.3 cm LV Systolic Diameter PLAX 2.7 cm IVS Diastolic Thickness 0.9 cm 0.6 - 1.0 / 0.6 - 0.9 cm LVPW Diastolic Thickness 0.9 cm 0.6 - 1.0 / 0.6 - 0.9 cm LV Relative Wall Thickness 0.4 LVOT Diameter 2.1 cm Aortic Root Diameter 2.8 cm LA Systolic Diameter LX 2.3 cm 3.0 - 4.0 / 2.7 - 3.8 cm M-MODE AV Cusp Separation MM 2.0 cm DOPPLER AV Peak Velocity 115.0 cm/s AV Peak Gradient 5.3 mmHg AV Mean Gradient 2.0 mmHg AV Velocity Time Integral 11.6 cm LVOT Peak Velocity 67.7 cm/s LVOT Peak Gradient 1.8 mmHg LVOT Velocity Time Integral 10.8 cm AV Area Cont Eq vti 3.2 cm AV Area Cont Eq pk 2.0 cm Mitral E Point Velocity 38.5 cm/s Mitral A Point Velocity 51.8 cm/s Mitral E to A Ratio 0.7 LV E' Lateral Velocity 10.8 cm/s Mitral E to LV E' Lateral Ratio 3.6 LV E' Septal Velocity 5.6 cm/s Mitral E to LV E' Septal Ratio 6.9 PV Peak Velocity 55.6 cm/s PV Peak Gradient 1.2 mmHg FINDINGS LEFT VENTRICLE The left ventricle is not well visualized. Wall thickness is normal. The left ventricular systolic function is hyperdynamic with an estimated ejection fraction in the ra nge of 65- 70%. RIGHT VENTRICLE Normal right ventricular size and systolic function. LEFT ATRIUM The left atrial size is normal. RIGHT ATRIUM The right atrial size is normal. ATRIAL SEPTUM Normal atrial septal thickness without atrial level shunting by limited color doppler interrogation. AORTA The aortic root and proximal ascending aorta are normal in size on limited imaging. MITRAL VALVE Kznhf-dm-rhjv mitral valve regurgitation. AORTIC VALVE Trileaflet aortic valve. No aortic valve stenosis or regurgitation. TRICUSPID VALVE There is trace tricuspid valve regurgitation. PULMONARY VALVE The pulmonary valve is not well visualized. VESSELS The inferior vena cava is normal in size. PERICARDIUM No pericardial effusion. Aung Genao MD, FACC (Electronically Signed) Final Date:14 February 2017 14:15
--- NOTE | 2017-02-14 15:42 | MB ---
cc: ADAM NEWSOME DATE OF CONSULTATION: 02/14/2017. REASON FOR CONSULTATION: Patient with left MCA infarct and polycythemia. HISTORY OF PRESENT ILLNESS: This patient is currently unresponsive and unable to answer any questions. He was brought to the emergency room. He is disheveled. There are no family members available. He has been getting weak in the emergency department. A CT scan of the brain was obtained which revealed a large subacute infarct in the left MCA territory with concern for hemorrhage. He also had ultrasound of the carotid arteries which showed an occluded left internal carotid artery and external carotid artery. The right carotid was patent. There was antegrade flow involving both vertebral arteries. The patient was not a candidate for TPA he has been seen by neurology. He has left-sided paresis. There is concern for some cerebral edema. Neurology has started this patient on aspirin rectally 300 milligrams daily. MRI of the brain, MRA and echocardiogram have been ordered. He is on cardiac telemetry. The patient was found to have significantly elevated hematocrit of 20.3. His MCV was 61.7. His white blood cell count was 20.8. Hematology has been consulted to assess polycythemia in this patient who has had acute stroke. REVIEW OF SYSTEMS: Unable to be obtained due to the patient's mental status. PAST MEDICAL HISTORY: Unable to be obtained. PAST SURGICAL HISTORY: Unknown. FAMILY HISTORY: Unknown. SOCIAL HISTORY: Unknown due to his mental status. MEDICATIONS: 1. Pepcid 20 milligrams IV q. 12 hours. 2. Senna / Docusate p.o. twice a day. 3. Sliding scale insulin. 4. Zofran 4 milligrams PRN. 5. Tylenol 650 PRN. 6. Milk of magnesia PRN. 7. Senna PRN. 8. His electrolytes are being replaced. He has received potassium and phosphorus. ALLERGIES: Unknown. PHYSICAL EXAMINATION: VITAL SIGNS: Blood pressure is 130/93, pulse is in the 100s, temperature is 99, 02 saturations are 91% on four liters of nasal cannula. GENERAL: Disheveled. An acutely ill patient in no apparent distress. HEAD, EYES, EARS, NOSE, THROAT: Pupils are equal, round, reactive to light. Extraocular muscles intact. No oral thrush. No oral lesions. NECK: Neck is supple. No JVD, no bruits. No lymphadenopathy. CHEST: Chest is clear to auscultation bilaterally. CARDIAC: S1-S2, tachycardiac. ABDOMEN: Abdomen is soft, nontender, nondistended. Bowel sounds are decreased. EXTREMITIES: No edema, erythema or cyanosis. Multiple areas of maceration. NEUROLOGIC: He has right-sided paresis. He is unresponsive. There is some response to painful stimuli. He is moving his left arm and leg. LABORATORY DATA: WBCs 19.1, hemoglobin is now 17.2, MCV is 91.4, platelet count is 128,000. Serum chemistries show sodium of 156, potassium 4, chloride 125, CO2 22.1, BUN is 50, creatinine is 0.83, GFR is 80, glucose is 113, calcium is 8.1, phosphorus is 1.8, magnesium 2.9. Iron studies show iron of 42, TIBC 203, percent saturation is 20.7, transferrin is 145. Coags show PT of 12.6, INR 1.1, PTT 22.4. IMAGING STUDIES: Reviewed in the electronic medical record. ASSESSMENT AND PLAN: This patient was admitted with altered mental status and has right hemiplegia. He was found to have a left MCA territory infarct. There is a small pebr-ba-fqrgn front line mid-shift. He was found to have polycythemia on admission. 1.Polycythemia. I believe that this is secondary to dehydration/volume depletion/hemoconcentration. His hematocrit is improving, it is now 17.2. Continue IV hydration. If his hematocrit stays above 50% despite after receiving aggressive hydration, we will consider phlebotomy treatment but I do not believe that this is indicated at this time. I will check JAY JAY-2 mutation to assess for underlying polycythemia vera. 2. Large left hemispheric stroke and right-sided paresis: I will defer recommendations to neurology. 3. Leukocytosis, which is reactive: I will review his peripheral smear. 4. Multiple electrolyte abnormalities including hypophosphatemia. He also has hyponatremia, which points towards decreased intravascular volume. I will check his iron studies, in particular, transferrin and iron saturation. Will recheck his CBC tonight to see if the hematocrit continues to decline. Thank you for allowing me to participate in the care of this patient. I will continue to follow this patient along. MD MAHENDRA Benjamin/PAT /2:38 PM /3:30 PM CAROLEE
[2017-02-14 18:41] LABS: AUTOMATED NEUTROPHIL # 12.1 TH/MM3 (1.8-7.7); BASOPHIL % 0.3 % (0.0-2.0); HEMATOCRIT 50.7 % (39.0-51.0); LYMPH % 10.9 % (9.0-44.0); LYMPHOCYTE # 1.8 TH/MM3 (1.0-4.8); MEAN CELL VOLUME 91.2 FL (80.0-100.0); MEAN CORPUSCULAR HEMOGLOBIN 30.2 PG (27.0-34.0); MEAN CORPUSCULAR HGB CONC 33.1 % (32.0-36.0); MONO % 13.5 % (0.0-8.0); NEUT % 75.3 % (16.0-70.0); PLATELET COUNT 114 TH/MM3 (150-450); RED BLOOD COUNT 5.56 MIL/MM3 (4.50-5.90); RED CELL DISTRIBUTION WIDTH 13.8 % (11.6-17.2); WHITE BLOOD COUNT 16.1 TH/MM3 (4.0-11.0)
[2017-02-14 18:52] LABS: HEMO FLAGS AUTO DIFF
[2017-02-14 19:21] LABS: EOSINOPHILS 1 % (0-4); NEUTROPHIL # MANUAL DIFF 14.2 TH/MM3 (1.8-7.7); OVALOCYTES 1+ (NORMAL); POLYS (SEG NEUTROPHILS) 88 % (16-70); WBC DIFF SAMPLE 100
[2017-02-14 19:22] LABS: PLATELET ESTIMATE SMEAR LOW (NORMAL); PLATELET MORPHOLOGY NORMAL (NORMAL); SCAN/DIFF FINAL DIFF MANUAL
--- NOTE | 2017-02-14 21:50 | HHI.PR ---
Review/Management Diagnosis Large left MCA cva-- Plan repeat CT brain in am continue monitor in icu Diagnosis/Plan: Subjective Subjective Comments No acute events reported Pt has had diminished LOC today Active Medications Current Medications Medications (Trade) Dose Ordered Sig/Vinnie Route Start Time Stop Time Status Last Admin (Tylenol) 650 mg Q6H PRN PO 02/13/17 11:00 (Pepcid Inj) 20 mg Q12HR IV PUSH 02/13/17 21:00 02/14/17 20:43 (Zofran Inj) 4 mg Q6H PRN IV PUSH 02/13/17 11:00 (Duoneb Neb) 1 ampule Q2HR NEB PRN INH 02/13/17 11:00 Miscellaneous Information 1 Q361D XX 02/13/17 11:00 (Chlorhexidine 2% Cloth) 3 pack Taper DAILY@04 TOP 02/14/17 04:00 02/10/18 03:59 (Chlorhexidine 2% Cloth) 3 pack UNSCH PRN TOP 02/13/17 11:00 (Dianna-Colace) 1 tab BID PO 02/13/17 21:00 02/14/17 20:43 (Milk Of Magnesia Liq) 30 ml Q12H PRN PO 02/13/17 11:00 (Senokot) 17.2 mg Q12H PRN PO 02/13/17 11:00 (Dulcolax Supp) 10 mg DAILY PRN RECTAL 02/13/17 11:00 (Lactulose Liq) 30 ml DAILY PRN PO 02/13/17 11:00 (NS Flush) 2 ml BID IV FLUSH 02/13/17 21:00 02/14/17 20:43 (NS Flush) 2 ml UNSCH PRN IV FLUSH 02/13/17 16:45 (Aspirin Supp) 300 mg DAILY RECTAL 02/13/17 17:00 02/14/17 10:55 (NovoLOG SUPPLEMENTAL SCALE) 1 ACHS SQ 02/13/17 17:00 (D50w (Vial) Inj) 50 ml UNSCH PRN IV PUSH 02/13/17 16:45 (Glucagon Inj) 1 mg UNSCH PRN OTHER 02/13/17 16:45 Potassium Chloride 10 meq/ Lactated Ringer's 1,005 ml @ 100 mls/hr Q10H3M IV 02/14/17 11:00 02/14/17 21:02 Potassium Chloride 100 ml @ 50 mls/hr Q2H PRN IV 02/14/17 09:45 Potassium Chloride 100 ml @ 50 mls/hr Q2H PRN IV 02/14/17 09:45 (K-Lyte Cl Eff) 50 meq UNSCH PRN PO 02/14/17 09:45 Potassium Chloride 100 ml @ 25 mls/hr UNSCH PRN IV 02/14/17 09:45 Potassium Chloride 100 ml @ 50 mls/hr Q2H PRN IV 02/14/17 09:45 Magnesium Sulfate 4 gm/Sodium Chloride 100 ml @ 50 mls/hr UNSCH PRN IV 02/14/17 09:45 (Mag-Ox) 800 mg UNSCH PRN PO 02/14/17 09:45 Magnesium Sulfate 2 gm/Sodium Chloride 100 ml @ 50 mls/hr UNSCH PRN IV 02/14/17 09:45 (K-Phos) 2,000 mg Q4H PRN PO 02/14/17 09:45 Sodium Phosphate 30 mmol/Sodium Chloride 250 ml @ 42 mls/hr UNSCH PRN IV 02/14/17 09:45 (K-Phos) 2,000 mg UNSCH PRN PO/TUBE 02/14/17 09:45 Potassium Phosphate 30 mmol/ Sodium Chloride 260 ml @ 42 mls/hr UNSCH PRN IV 02/14/17 09:45 Allergies Allergies Coded Allergies Unable to Assess (Verified Allergy, Unknown, 02/13/17) Exam I&O / VS 02/14/17 02/14/17 02/15/17 15:00 23:00 07:00 Intake Total 197 ml 1322 ml Output Total 500 ml Balance 197 ml 822 ml Intake IV Total 197 ml 1188 ml Tube Feeding 134 ml Output Urine Total 500 ml # Bowel Movements 0 Vital Signs Date Time Temp Pulse Resp B/P (MAP) Pulse Ox O2 Delivery O2 Flow Rate FiO2 02/14/17 20:56 96 Nasal Cannula 3.00 02/14/17 16:00 110 02/14/17 16:00 99.3 110 26 113/74 (87) 97 02/14/17 14:00 112 02/14/17 12:25 92 Nasal Cannula 4.00 02/14/17 12:00 99.0 114 27 130/93 (105) 91 02/14/17 12:00 114 02/14/17 10:00 110 02/14/17 08:00 98.9 108 27 128/75 (92) 94 02/14/17 08:00 108 02/14/17 07:00 94 Room Air 02/14/17 06:00 110 02/14/17 04:00 98.7 110 25 116/80 (92) 95 02/14/17 04:00 110 02/14/17 02:00 105 02/14/17 00:00 98.2 103 24 117/81 (93) 93 02/14/17 00:00 103 02/13/17 22:00 108 Exam Comments lethargic but arousable to sternal rub. Does not follow commands PERRL right upper motor neuron CN 7 palsey' 0/5 RUE and RLE Objective Radiology Results CT brain today shows decrease mass effect from cva. No hemorrhage Micro and Labs Laboratory Tests Test 02/13/17 23:48 02/14/17 04:20 02/14/17 18:26 White Blood Count 22.1 19.1 16.1 Red Blood Count 6.01 5.62 5.56 Hemoglobin 18.0 17.2 16.8 Hematocrit 55.2 51.4 50.7 Mean Corpuscular Volume 91.9 91.4 91.2 Mean Corpuscular Hemoglobin 29.9 30.5 30.2 Mean Corpuscular Hemoglobin Concent 32.6 33.4 33.1 Red Cell Distribution Width 14.2 14.2 13.8 Platelet Count 124 128 114 Mean Platelet Volume 8.6 9.3 8.7 Neutrophils (%) (Auto) 77.7 78.9 75.3 Lymphocytes (%) (Auto) 7.8 8.6 10.9 Monocytes (%) (Auto) 14.3 12.5 13.5 Eosinophils (%) (Auto) 0.0 0.0 0.0 Basophils (%) (Auto) 0.2 0.0 0.3 Neutrophils # (Auto) 17.2 15.1 12.1 Lymphocytes # (Auto) 1.7 1.7 1.8 Monocytes # (Auto) 3.2 2.4 2.2 Eosinophils # (Auto) 0.0 0.0 0.0 Basophils # (Auto) 0.0 0.0 0.0 CBC Comment AUTO DIFF AUTO DIFF AUTO DIFF Differential Total Cells Counted 100 100 Neutrophils % (Manual) 77 88 Band Neutrophils % 1 Lymphocytes % 14 5 Monocytes % 8 6 Neutrophils # (Manual) 17.2 14.2 Differential Comment FINAL DIFF MANUAL AUTO DIFF CONFIRMED FINAL DIFF MANUAL Atypical Lymphocytes Platelet Estimate LOW LOW LOW Platelet Morphology Comment NORMAL NORMAL NORMAL Ovalocytes 1+ 1+ Blood Urea Nitrogen 50 Creatinine 0.83 Random Glucose 113 Calcium Level 8.1 Phosphorus Level 1.8 Magnesium Level 2.9 Sodium Level 156 Potassium Level 4.0 Chloride Level 125 Carbon Dioxide Level 22.1 Anion Gap 9 Estimat Glomerular Filtration Rate 80 Triglycerides Level 153 Cholesterol Level 168 LDL Cholesterol 99 HDL Cholesterol 38.2 Cholesterol/HDL Ratio 4.39 Eosinophils % 1 Date/Time Source Procedure Growth Status 02/13/17 09:40 Blood Peripheral Aerobic Blood Culture - Preliminary NO GROWTH IN 1 DAY Resulted 02/13/17 09:40 Blood Peripheral Anaerobic Blood Culture - Preliminary NO GROWTH IN 1 DAY Resulted Klaus Hansen PhD Feb 14, 2017 21:50
[2017-02-15] VITALS (14 sets, daily range): BP systolic 71–130; BP diastolic 37–87; PULSE 0–126; RESP 25–38; TEMP 98.8–102.8; O2SAT 25–95
[2017-02-15 04:30] LABS: BLOOD GAS BASE EXCESS 0.7 mmol/L (-2-2); BLOOD GAS CARBOXYHEMOGLOBIN 1.2 % (0-4); BLOOD GAS HCO3 24 mmol/L (22-26); BLOOD GAS METHEMOGLOBIN 0.9 % (0-2); BLOOD GAS O2 HGB SATURATION 92 % (90-100); BLOOD GAS OXYGEN CONTENT 21.5 Vol % (12.0-20.0); BLOOD GAS PCO2 31 mmHg (38-42); BLOOD GAS PO2 64 mmHg (61-120); BLOOD GAS TOTAL HGB 16.7 G/DL (12.0-16.0); CRITICAL VALUE NO; DRAW SITE RT RADIAL; LITER FLOW 3 L/M; NUMBER OF ARTERIAL PUNCTURES 1; OXYGEN DEVICE NASAL CANNULA; STAT NO; TEMP CORR TO 98.6; ULNAR PULSE PRESENT
[2017-02-15 05:56] LABS: BICARBONATE 24.1 MEQ/L (21.0-32.0); POTASSIUM 3.9 MEQ/L (3.5-5.1)
--- NOTE | 2017-02-15 07:38 | RADRPT ---
EXAM DATE/TIME: 02/15/2017 07:19 [facility] COMPARISON: No previous studies available for comparison. INDICATIONS : Abdoman for MRI clearance. MEDICAL HISTORY : None. SURGICAL HISTORY : None. ENCOUNTER: Initial ACUITY: 2 days PAIN SCORE: Non-responsive. LOCATION: abdoman FINDINGS: Supine view of the abdomen was performed. The abdominal bowel gas pattern is normal. No abnormal ma sses, calcifications, or organomegaly is seen. Severe arthropathy is noted of the right hip. There is collapse of the joint subchondral sclerosis and remodeling of the articulating surfaces. Lower lumba r facet arthropathy is noted. No evidence of radiopaque foreign bodies. CONCLUSION: No evidence of radiopaque foreign bodies. Advanced right hip arthropathy Lower lumbar facet arthropathy Price Andino MD on February 15, 2017 at 7:35 Board Certified Radiologist. This report was verified electronically.
[2017-02-15] MEDS: ASPIRIN 300 MG SUPP RECTAL SCH (07:58)
[2017-02-15] MEDS: DOCUSATE SODIUM 50 MG/SENNA 8.6 MG TAB PO SCH ×2 (07:58→19:29)
[2017-02-15] MEDS: INSULIN ASPART SUPPLEMENTAL SCALE SQ SCH ×4 (08:00→19:29)
--- NOTE | 2017-02-15 08:07 | HHI.CCPN ---
Subjective Remarks/Hospital Course Nonverbal, dishevelled man found at wellness check after not being seen for 5 days. Unable to move right side. CT head reveals several day old left hemispheric stroke. Found in urine and unable to follow commands. No additional information available, no family. 02/14: Left internal and external carotid arteries completely occluded ipsilateral to large MCA infarction. No improvement. Cerebral edema present on CT. 02/15: Deteriorating respiratory status. I had a lengthy talk with the patient' s brother this morning who stated that the patient would not want to be placed on a ventilator or kept alive artificially after a debilitating stroke - which this certainly is. He states that the patient is right handed, further clarifying that this is a dominant hemisphere stroke. Brain MRI and CT today demonstrate worsening swelling a hemorrhage in the basal ganglia left side. This is likely a fatal stroke. His brother Emiliano is aware that he is critically ill. Objective Vital Signs Date Time Temp Pulse Resp B/P (MAP) Pulse Ox O2 Delivery O2 Flow Rate FiO2 02/15/17 05:00 92 Nasal Cannula 4.00 02/15/17 04:00 99.1 103 34 128/80 (96) Intake and Output 02/15/17 02/15/17 02/16/17 08:00 16:00 00:00 Intake Total 1526 ml Output Total 550 ml Balance 976 ml Result Diagram: 02/14/17 1826 02/15/17 0353 Other Results Laboratory Tests Test 02/15/17 04:22 Blood Gas Puncture Site RT RADIAL Blood Gas Patient Temperature 98.6 Blood Gas HCO3 24 mmol/L (22-26) Blood Gas Base Excess 0.7 mmol/L (-2-2) Blood Gas Oxygen Saturation 92 % (90-100) Arterial Blood pH 7.50 (7.380-7.420) Arterial Blood Partial Pressure CO2 31 mmHg (38-42) Arterial Blood Partial Pressure O2 64 mmHg (61-120) Arterial Blood Oxygen Content 21.5 Vol % (12.0-20.0) Arterial Blood Carboxyhemoglobin 1.2 % (0-4) Arterial Blood Methemoglobin 0.9 % (0-2) Blood Gas Hemoglobin 16.7 G/DL (12.0-16.0) Oxygen Delivery Device NASAL CANNULA Blood Gas Liter Flow 3 L/M Objective Remarks Gen: Nonverbal. Head: Atraumatic. Neck: Supple, airway with watery secretions, gurgling. Lungs: Mobile secretions, good alva air movement but congested from inability to protect airway. Heart: NL S1S2, RRR. Abdomen: Nondistended, soft. No guarding. Extremities: Warm, well perfused. Red skin right side and back, macerated in places. Neuro: Right paresis. No speech. JEMMA at 2 mm. Moves left arm and leg spontaneously. Does not track with eyes or follow commands. Largely unresponsive. A/P Problem List: (1) Left acute arterial ischemic stroke, MCA (middle cerebral artery) ICD Code: I63.512 - Cerebral infarction due to unspecified occlusion or stenosis of left middle cerebral artery Status: Acute (2) Acute renal failure ICD Code: N17.9 - Acute kidney failure, unspecified Status: Acute (3) Acute hypernatremia ICD Code: E87.0 - Hyperosmolality and hypernatremia Status: Acute (4) Leukocytosis ICD Code: D72.829 - Elevated white blood cell count, unspecified Status: Acute Assessment and Plan Plan: 1. Out of tPA window by > 48 hours. 2. Aggressive hydration with NS -> renal function acceptable now. 3. HOB up 30 degrees. 4. Anticipate continued cerebral swelling. 5. Follow renal function response to hydration. 6. Hold anticoagulation. 7. Chemical DVT prophylaxis on hold. 8. Pepcid. 9. NG tube. 10. Followup CT, MRI. 11. Start tube feeds. 12. Locate any family for guidance on care plan -> done. Overall impression: Patient with large left dominant hemispheric stroke and right sided paresis. Cerebral edema is worrisome. Etiology is complete occlusion left extracranial carotid system. Brother requests DNR comfort status. No children. Chacorta Torres MD Feb 15, 2017 08:07
[2017-02-15] MEDS: FAMOTIDINE 20 MG/2 ML VIAL IV PUSH SCH ×2 (08:18→19:33)
[2017-02-15] MEDS: SODIUM CHLORIDE 0.9% FLUSH 5 ML FLUSH IV FLUSH SCH ×2 (08:18→19:34)
[2017-02-15] MEDS: SODIUM CHLOR 0.45% 1000 ML INJ 1,000 ML IV SCH ×2 (08:19→19:33)
--- NOTE | 2017-02-15 10:03 | RADRPT ---
EXAM DATE/TIME: 02/15/2017 09:16 [facility] COMPARISON: MRI BRAIN W/O CONTRAST, February 15, 2017, 9:16. CT BRAIN W/O CONTRAST, February 14, 2017, 10:03. INDICATIONS : Stroke. Unresponsive. MEDICAL HISTORY : None. SURGICAL HISTORY : None. ENCOUNTER: Initial ACUITY: 3 day PAIN SCORE: 0/10 LOCATION: cranial Please note a normal MRA of the brain does not entirely exclude the possibility of a small aneurysm, nor the possibility of distal intracranial vessel disease. TECHNIQUE: 3D time of flight MRA was performed. Source images, multiplanar STS MIP, and 3D volume MIP reconstru ctions were reviewed. FINDINGS: There is excellent visualization of the major intracranial arteries out to the second-order branch ve ssels. The left internal carotid artery is occluded. A patent left posterior commuting artery reconstitutes the distal left internal carotid artery. Diffuse narrowing is seen at the M1 segment of the MCA. A pr ominent frontal branch remains patent. Temporal and parietal branches in the left MCA distribution ar e completely occluded. The right cerebral circulation and vertebrobasilar vessels are patent. CONCLUSION: 1. Left ICA occlusion with supraclinoid ICA reconstitution via the posterior communicating artery. 2. Occluded left temporal and parietal MCA branches. 3. Well-preserved flow in the right cerebral hemisphere and posterior fossa. Price Andino MD on February 15, 2017 at 9:56 Board Certified Radiologist. This report was verified electronically.
--- NOTE | 2017-02-15 10:07 | RADRPT ---
EXAM DATE/TIME: 02/15/2017 09:16 [facility] COMPARISON: CT BRAIN W/O CONTRAST, February 15, 2017, 9:45. INDICATIONS : Stroke. Unresponsive. MEDICAL HISTORY : None. SURGICAL HISTORY : None. ENCOUNTER: Initial ACUITY: 3 day PAIN SCORE: 0/10 LOCATION: cranial TECHNIQUE: Multiplanar, multisequence MRI of the brain was performed without contrast. FINDINGS: CEREBRUM: Restricted diffusion is evident throughout the left MCA distribution. There is significant mass effec t with left to right shift of midline structures measuring approximately 1.7 cm. Susceptibility is id entified throughout the basal ganglia indicated of hemorrhage. There are no peripheral hematomas. The right cerebral hemisphere remains unremarkable. WHITE MATTER: Extensive restricted diffusion is identified throughout the left cerebral white matter correspond to the infarcted region. POSTERIOR FOSSA: The cerebellum and brainstem are intact. The 4th ventricle is midline. The cerebellopontine angle is unremarkable. The cerebellar tonsils are normal in position. EXTRACRANIAL: The visualized portions of the orbits and paranasal sinuses are unremarkable. CONCLUSION: 1. Acute infarct in the left MCA distribution secondary to internal carotid artery occlusion. 2. Left basal ganglionic hemorrhage without evidence of peripheral hematoma. 3. Significant left to right midline shift similar to that seen on CT. Price Andino MD on February 15, 2017 at 10:01 Board Certified Radiologist. This report was verified electronically.
--- NOTE | 2017-02-15 10:27 | RADRPT ---
EXAM DATE/TIME: 02/15/2017 09:45 [facility] COMPARISON: CT BRAIN W/O CONTRAST, February 14, 2017, 10:03. INDICATIONS : Follow up for left side stroke. RADIATION DOSE: 33.32 CTDIvol (mGy) MEDICAL HISTORY : Non-responsive. SURGICAL HISTORY : Non-responsive. ENCOUNTER: Subsequent ACUITY: 2 days PAIN SCALE: 0/10 LOCATION: cranial TECHNIQUE: Multiple contiguous axial images were obtained of the head. Using automated exposure control and adj ustment of the mA and/or kV according to patient size, radiation dose was kept as low as reasonably a chievable to obtain optimal diagnostic quality images. DICOM format image data is available electro nically for review and comparison. FINDINGS: Large left MCA infarct is again noted. Margins of the infarct are closely defined. There is continued significant mass effect with [id number] shift of midline structures measuring 1.7 cm. Slight incr eased density in the basal ganglia represents hemorrhage as indicated by MRI. Right hemisphere and posterior fossa are stable. CONCLUSION: 1. No significant change. 2. Large left MCA infarct with basal ganglionic hemorrhage better seen on MRI. 3. Significant mass effect and shift; unchanged. Price Andino MD on February 15, 2017 at 10:22 Board Certified Radiologist. This report was verified electronically.
[2017-02-15] MEDS: MORPHINE SULFATE 4 MG/ML INJ IV PUSH PRN ×5 (12:35→21:00)
--- NOTE | 2017-02-15 13:08 | HHI.PR ---
Review/Management Diagnosis Large left MCA cva-- prognosis poor Diagnosis/Plan: Subjective Subjective Comments No acute events reported Active Medications Current Medications Medications (Trade) Dose Ordered Sig/Vinnie Route Start Time Stop Time Status Last Admin (Tylenol) 650 mg Q6H PRN PO 02/13/17 11:00 (Pepcid Inj) 20 mg Q12HR IV PUSH 02/13/17 21:00 02/15/17 08:18 (Zofran Inj) 4 mg Q6H PRN IV PUSH 02/13/17 11:00 (Duoneb Neb) 1 ampule Q2HR NEB PRN INH 02/13/17 11:00 Miscellaneous Information 1 Q361D XX 02/13/17 11:00 (Chlorhexidine 2% Cloth) 3 pack Taper DAILY@04 TOP 02/14/17 04:00 02/10/18 03:59 (Chlorhexidine 2% Cloth) 3 pack UNSCH PRN TOP 02/13/17 11:00 (Dianna-Colace) 1 tab BID PO 02/13/17 21:00 02/15/17 07:58 (Milk Of Magnesia Liq) 30 ml Q12H PRN PO 02/13/17 11:00 (Senokot) 17.2 mg Q12H PRN PO 02/13/17 11:00 (Dulcolax Supp) 10 mg DAILY PRN RECTAL 02/13/17 11:00 (Lactulose Liq) 30 ml DAILY PRN PO 02/13/17 11:00 (NS Flush) 2 ml BID IV FLUSH 02/13/17 21:00 02/14/17 20:43 (NS Flush) 2 ml UNSCH PRN IV FLUSH 02/13/17 16:45 (Aspirin Supp) 300 mg DAILY RECTAL 02/13/17 17:00 02/15/17 07:58 (NovoLOG SUPPLEMENTAL SCALE) 1 ACHS SQ 02/13/17 17:00 (D50w (Vial) Inj) 50 ml UNSCH PRN IV PUSH 02/13/17 16:45 (Glucagon Inj) 1 mg UNSCH PRN OTHER 02/13/17 16:45 Potassium Chloride 100 ml @ 50 mls/hr Q2H PRN IV 02/14/17 09:45 Potassium Chloride 100 ml @ 50 mls/hr Q2H PRN IV 02/14/17 09:45 (K-Lyte Cl Eff) 50 meq UNSCH PRN PO 02/14/17 09:45 Potassium Chloride 100 ml @ 25 mls/hr UNSCH PRN IV 02/14/17 09:45 Potassium Chloride 100 ml @ 50 mls/hr Q2H PRN IV 02/14/17 09:45 Magnesium Sulfate 4 gm/Sodium Chloride 100 ml @ 50 mls/hr UNSCH PRN IV 02/14/17 09:45 (Mag-Ox) 800 mg UNSCH PRN PO 02/14/17 09:45 Magnesium Sulfate 2 gm/Sodium Chloride 100 ml @ 50 mls/hr UNSCH PRN IV 02/14/17 09:45 (K-Phos) 2,000 mg Q4H PRN PO 02/14/17 09:45 Sodium Phosphate 30 mmol/Sodium Chloride 250 ml @ 42 mls/hr UNSCH PRN IV 02/14/17 09:45 (K-Phos) 2,000 mg UNSCH PRN PO/TUBE 02/14/17 09:45 Potassium Phosphate 30 mmol/ Sodium Chloride 260 ml @ 42 mls/hr UNSCH PRN IV 02/14/17 09:45 Sodium Chloride 1,000 ml @ 84 mls/hr [id number] IV 02/15/17 08:00 02/15/17 08:19 (Morphine Inj) 4 mg Q1H PRN IV PUSH 02/15/17 12:15 Allergies Allergies Coded Allergies Unable to Assess (Verified Allergy, Unknown, 02/13/17) Exam I&O / VS 02/15/17 02/15/17 02/16/17 15:00 23:00 07:00 Intake Total 176 ml Balance 176 ml Intake IV Total 176 ml Vital Signs Date Time Temp Pulse Resp B/P (MAP) Pulse Ox O2 Delivery O2 Flow Rate FiO2 02/15/17 10:00 112 02/15/17 08:00 99.6 112 30 118/73 (88) 94 02/15/17 08:00 112 02/15/17 07:00 94 Nasal Cannula 4.00 02/15/17 05:00 92 Nasal Cannula 4.00 02/15/17 04:00 99.1 103 34 128/80 (96) 95 02/15/17 04:00 103 02/15/17 00:00 98.8 106 36 116/83 (94) 94 02/15/17 00:00 106 02/14/17 20:56 96 Nasal Cannula 3.00 02/14/17 20:00 96 02/14/17 20:00 98.6 96 31 125/80 (95) 98 02/14/17 19:00 97 Nasal Cannula 3.00 02/14/17 16:00 110 02/14/17 16:00 99.3 110 26 113/74 (87) 97 02/14/17 14:00 112 Exam Comments lethargic but arousable to voice. Does not follow commands PERRL right upper motor neuron CN 7 palsey' 0/5 RUE and RLE Has some spontaneous movement LUE and LLE Objective Radiology Results CT brain today shows large left MCA stroke with no change from last CT Micro and Labs Laboratory Tests Test 02/14/17 18:26 02/15/17 03:53 02/15/17 04:22 White Blood Count 16.1 Red Blood Count 5.56 Hemoglobin 16.8 Hematocrit 50.7 Mean Corpuscular Volume 91.2 Mean Corpuscular Hemoglobin 30.2 Mean Corpuscular Hemoglobin Concent 33.1 Red Cell Distribution Width 13.8 Platelet Count 114 Mean Platelet Volume 8.7 Neutrophils (%) (Auto) 75.3 Lymphocytes (%) (Auto) 10.9 Monocytes (%) (Auto) 13.5 Eosinophils (%) (Auto) 0.0 Basophils (%) (Auto) 0.3 Neutrophils # (Auto) 12.1 Lymphocytes # (Auto) 1.8 Monocytes # (Auto) 2.2 Eosinophils # (Auto) 0.0 Basophils # (Auto) 0.0 CBC Comment AUTO DIFF Differential Total Cells Counted 100 Neutrophils % (Manual) 88 Lymphocytes % 5 Monocytes % 6 Eosinophils % 1 Neutrophils # (Manual) 14.2 Differential Comment FINAL DIFF MANUAL Platelet Estimate LOW Platelet Morphology Comment NORMAL Ovalocytes 1+ Blood Urea Nitrogen 38 Creatinine 0.88 Random Glucose 138 Calcium Level 8.2 Sodium Level 161 Potassium Level 3.9 Chloride Level 128 Carbon Dioxide Level 24.1 Anion Gap 9 Estimat Glomerular Filtration Rate 75 Blood Gas Puncture Site RT RADIAL Blood Gas Patient Temperature 98.6 Blood Gas HCO3 24 Blood Gas Base Excess 0.7 Blood Gas Oxygen Saturation 92 Arterial Blood pH 7.50 Arterial Blood Partial Pressure CO2 31 Arterial Blood Partial Pressure O2 64 Arterial Blood Oxygen Content 21.5 Arterial Blood Carboxyhemoglobin 1.2 Arterial Blood Methemoglobin 0.9 Blood Gas Hemoglobin 16.7 Oxygen Delivery Device NASAL CANNULA Blood Gas Liter Flow 3 Date/Time Source Procedure Growth Status 02/13/17 09:40 Blood Peripheral Aerobic Blood Culture - Preliminary NO GROWTH IN 2 DAYS Resulted 02/13/17 09:40 Blood Peripheral Anaerobic Blood Culture - Preliminary NO GROWTH IN 2 DAYS Resulted Klaus Hansen PhD, MD Feb 15, 2017 13:08
--- NOTE | 2017-02-15 14:05 | HHI.PR ---
Subjective Remarks Odium level increased by this morning. Phosphorus is low. Clinical status is poor. Large ischemic CVA, intracranial hemorrhage, midline shift present. Neurological status is declining. Patient has been made DO NOT RESUSCITATE by his brother. Objective Vital Signs Date Time Temp Pulse Resp B/P (MAP) Pulse Ox O2 Delivery O2 Flow Rate FiO2 02/15/17 12:00 120 02/15/17 12:00 99.6 120 38 130/87 (101) 90 02/15/17 10:00 112 02/15/17 08:00 99.6 112 30 118/73 (88) 94 02/15/17 08:00 112 02/15/17 07:00 94 Nasal Cannula 4.00 02/15/17 05:00 92 Nasal Cannula 4.00 02/15/17 04:00 99.1 103 34 128/80 (96) 95 02/15/17 04:00 103 02/15/17 00:00 98.8 106 36 116/83 (94) 94 02/15/17 00:00 106 02/14/17 20:56 96 Nasal Cannula 3.00 02/14/17 20:00 96 02/14/17 20:00 98.6 96 31 125/80 (95) 98 02/14/17 19:00 97 Nasal Cannula 3.00 02/14/17 16:00 110 02/14/17 16:00 99.3 110 26 113/74 (87) 97 02/14/17 14:00 112 I/O 02/14/17 02/14/17 02/14/17 02/15/17 02/15/17 02/15/17 07:00 15:00 23:00 07:00 15:00 23:00 Intake Total 1000 ml 197 ml 1322 ml 1350 ml 176 ml Output Total 500 ml 500 ml 550 ml Balance 500 ml 197 ml 822 ml 800 ml 176 ml Intake IV Total 1000 ml 197 ml 1188 ml 829 ml 176 ml Tube Feeding 134 ml 521 ml Output Urine Total 500 ml 500 ml 500 ml Gastric Drainage Total 0 ml 50 ml # Bowel Movements 0 0 1 Result Diagram: 02/14/17 1826 02/15/17 0353 Objective Remarks GENERAL: NAD, A&Ox0 HEAD: Normocephalic. NECK: Supple, trachea midline. No lymphadenopathy. EYES: No scleral icterus. No injection or drainage. CARDIOVASCULAR: Regular rate and rhythm without murmurs, gallops, or rubs. RESPIRATORY: Breath sounds equal bilaterally. No accessory muscle use. GASTROINTESTINAL: Abdomen soft, non-tender, nondistended. MUSCULOSKELETAL: No cyanosis, or edema. SKIN: Warm and dry. NEURO: Global neurological deficit, cognitive deficit. A/P Problem List: (1) Left acute arterial ischemic stroke, MCA (middle cerebral artery) ICD Code: I63.512 - Cerebral infarction due to unspecified occlusion or stenosis of left middle cerebral artery Status: Acute (2) Leukocytosis ICD Code: D72.829 - Elevated white blood cell count, unspecified Status: Acute (3) Acute hypernatremia ICD Code: E87.0 - Hyperosmolality and hypernatremia Status: Acute (4) Acute renal failure ICD Code: N17.9 - Acute kidney failure, unspecified Status: Acute Assessment and Plan Assessment and plan Eduardo Monsalve male admitted secondary to acute CVA with infarction and hemorrhage Infarction CVA Hemorrhagic CVA Cerebral Midline shift Patient made DO NOT RESUSCITATE status Patient is unlikely to recover from this condition He may from this condition Palliative care consult Avoiding anticoagulation due to bleeding Progressive neurological deterioration expected if bleeding persists Hypernatremia Continue IV hydration with half-normal saline Monitor sodium levels Acute renal failure Dehydration present at admit IV hydration Improved Monitor renal function DVT prophylaxis MICHEALs Shukri Scott MD Feb 15, 2017 14:05
--- NOTE | 2017-02-15 15:23 | PD.ONC.PN ---
Subjective Subjective Remarks Tmax 99.8 overnight Pt resting in bed on NRB He is not responding to questions He is tachypneic and tachycardic According to PHOTOLITHOGRAPHIC STRIPPER he has been made a DNR by the brother Objective Data Date Time Temp Pulse Resp B/P (MAP) Pulse Ox O2 Delivery O2 Flow Rate FiO2 02/15/17 14:30 93 Non-Rebreather 15.00 02/15/17 14:00 112 02/15/17 12:00 120 02/15/17 12:00 99.6 120 38 130/87 (101) 90 02/15/17 10:00 112 02/15/17 08:00 99.6 112 30 118/73 (88) 94 02/15/17 08:00 112 02/15/17 07:00 94 Nasal Cannula 4.00 02/15/17 05:00 92 Nasal Cannula 4.00 02/15/17 04:00 99.1 103 34 128/80 (96) 95 02/15/17 04:00 103 02/15/17 00:00 98.8 106 36 116/83 (94) 94 02/15/17 00:00 106 02/14/17 20:56 96 Nasal Cannula 3.00 02/14/17 20:00 96 02/14/17 20:00 98.6 96 31 125/80 (95) 98 02/14/17 19:00 97 Nasal Cannula 3.00 02/14/17 16:00 110 02/14/17 16:00 99.3 110 26 113/74 (87) 97 02/15/17 02/15/17 02/15/17 07:00 15:00 23:00 Intake Total 1350 ml 176 ml Output Total 550 ml Balance 800 ml 176 ml Result Diagram: 02/14/17 1826 02/15/17 0353 Laboratory Results Laboratory Tests Test 02/14/17 18:26 02/15/17 03:53 02/15/17 04:22 White Blood Count 16.1 TH/MM3 Red Blood Count 5.56 MIL/MM3 Hemoglobin 16.8 GM/DL Hematocrit 50.7 % Mean Corpuscular Volume 91.2 FL Mean Corpuscular Hemoglobin 30.2 PG Mean Corpuscular Hemoglobin Concent 33.1 % Red Cell Distribution Width 13.8 % Platelet Count 114 TH/MM3 Mean Platelet Volume 8.7 FL Neutrophils (%) (Auto) 75.3 % Lymphocytes (%) (Auto) 10.9 % Monocytes (%) (Auto) 13.5 % Eosinophils (%) (Auto) 0.0 % Basophils (%) (Auto) 0.3 % Neutrophils # (Auto) 12.1 TH/MM3 Lymphocytes # (Auto) 1.8 TH/MM3 Monocytes # (Auto) 2.2 TH/MM3 Eosinophils # (Auto) 0.0 TH/MM3 Basophils # (Auto) 0.0 TH/MM3 CBC Comment AUTO DIFF Differential Total Cells Counted 100 Neutrophils % (Manual) 88 % Lymphocytes % 5 % Monocytes % 6 % Eosinophils % 1 % Neutrophils # (Manual) 14.2 TH/MM3 Differential Comment FINAL DIFF MANUAL Platelet Estimate LOW Platelet Morphology Comment NORMAL Ovalocytes 1+ Blood Urea Nitrogen 38 MG/DL Creatinine 0.88 MG/DL Random Glucose 138 MG/DL Calcium Level 8.2 MG/DL Sodium Level 161 MEQ/L Potassium Level 3.9 MEQ/L Chloride Level 128 MEQ/L Carbon Dioxide Level 24.1 MEQ/L Anion Gap 9 MEQ/L Estimat Glomerular Filtration Rate 75 ML/MIN Blood Gas Puncture Site RT RADIAL Blood Gas Patient Temperature 98.6 Blood Gas HCO3 24 mmol/L Blood Gas Base Excess 0.7 mmol/L Blood Gas Oxygen Saturation 92 % Arterial Blood pH 7.50 Arterial Blood Partial Pressure CO2 31 mmHg Arterial Blood Partial Pressure O2 64 mmHg Arterial Blood Oxygen Content 21.5 Vol % Arterial Blood Carboxyhemoglobin 1.2 % Arterial Blood Methemoglobin 0.9 % Blood Gas Hemoglobin 16.7 G/DL Oxygen Delivery Device NASAL CANNULA Blood Gas Liter Flow 3 L/M Culture Results Microbiology Date/Time Source Procedure Growth Status 02/13/17 09:40 Blood Peripheral Aerobic Blood Culture - Preliminary NO GROWTH IN 2 DAYS Resulted 02/13/17 09:40 Blood Peripheral Anaerobic Blood Culture - Preliminary NO GROWTH IN 2 DAYS Resulted 02/13/17 09:35 Blood Peripheral Aerobic Blood Culture - Preliminary NO GROWTH IN 2 DAYS Resulted 02/13/17 09:35 Blood Peripheral Anaerobic Blood Culture - Preliminary NO GROWTH IN 2 DAYS Resulted Imaging Studies Last [address] 02/15/17 0900 Signed Impressions: Service Date/Time: Wednesday, February 15, 2017 09:45 - CONCLUSION: 1. No significant change. 2. Large left MCA infarct with basal ganglionic hemorrhage better seen on MRI. 3. Significant mass effect and shift; unchanged. Price Andino MD Head Magnetic Resonance Angiography 02/15/17 0000 Signed Impressions: Service Date/Time: Wednesday, February 15, 2017 09:16 - CONCLUSION: 1. Left ICA occlusion with supraclinoid ICA reconstitution via the posterior communicating artery. 2. Occluded left temporal and parietal MCA branches. 3. Well-preserved flow in the right cerebral hemisphere and posterior fossa. Price Andino MD Brain MRI 02/15/17 0000 Signed Impressions: Service Date/Time: Wednesday, February 15, 2017 09:16 - CONCLUSION: 1. Acute infarct in the left MCA distribution secondary to internal carotid artery occlusion. 2. Left basal ganglionic hemorrhage without evidence of peripheral hematoma. 3. Significant left to right midline shift similar to that seen on CT. Price Andino MD Abdomen X-Ray 02/15/17 0000 Signed Impressions: Service Date/Time: Wednesday, February 15, 2017 07:19 - CONCLUSION: No evidence of radiopaque foreign bodies. Advanced right hip arthropathy Lower lumbar facet arthropathy Price Andino MD Administered Medications Medications (Trade) Dose Ordered Sig/Vinnie Route PRN Reason Start Time Stop Time Status Last Admin Dose Admin Famotidine (Pepcid Inj) 20 mg Q12HR IV PUSH 02/13/17 21:00 02/15/17 08:18 Senna/Docusate Sodium (Dianna-Colace) 1 tab BID PO 02/13/17 21:00 02/15/17 07:58 IV Flush (NS Flush) 2 ml BID IV FLUSH 02/13/17 21:00 02/14/17 20:43 Aspirin (Aspirin Supp) 300 mg DAILY RECTAL 02/13/17 17:00 02/15/17 07:58 Sodium Chloride 1,000 ml @ 84 mls/hr [id number] IV 02/15/17 08:00 02/15/17 08:19 Objective Remarks GENERAL: Acutely ill-appearing older male resting in bed on nonrebreather in moderate distress SKIN: Warm and dry. HEAD: Normocephalic. EYES: No injection or drainage. NECK: Supple, trachea midline. CARDIOVASCULAR: + S1/S2. Tachycardia rhythm. RESPIRATORY: Respiratory rate appears to be in the 30s. On nonrebreather GASTROINTESTINAL: Abdomen soft, non-tender, nondistended. EXTREMITIES: No cyanosis, or edema. NEUROLOGICAL: Patient is obtunded. Not following commands. He does not open eyes Assessment/Plan Problem List: (1) Left acute arterial ischemic stroke, MCA (middle cerebral artery) ICD Codes: I63.512 - Cerebral infarction due to unspecified occlusion or stenosis of left middle cerebral artery Status: Acute Plan: -- This patient was admitted with altered mental status and has right hemiplegia. He was found to have a left MCA territory infarct. There is a small [id number] front line mid-shift. -- Per neurology he has a poor prognosis (2) Erythrocytosis ICD Codes: D75.1 - Secondary polycythemia Plan: -- Polycythemia likely due to dehydration. -- No phlebotomy indicated at this time -- Monitor CBC Assessment Older male who presents as a Eduardo Bello and was found to have an acute CVA; hematology consulted for polycythemia Plan 1. Patient has poor prognosis and has been made a DNR by his brother 2. Primary team has consulted palliative care 3. When looking at his counts it is noted that there much improved after hydration. 4. No indication for phlebotomy at this time. Will recheck CBC in a.m. Discussed with Dr. Scott Discussed with PHOTOLITHOGRAPHIC STRIPPER Attending Statement The exam, history, and the medical decision-making described in the above note were completed with the assistance of the mid-level provider. I reviewed and agree with the findings presented. I attest that I had a [id number] encounter with the patient on the same day, and personally performed and documented my assessment and findings in the medical record Poor prognosis family wants to speak to palliative care DNR Kendra Cuevas Feb 15, 2017 15:23 Ryne Pascual MD Feb 15, 2017 16:11
[2017-02-15] MEDS: CHLORHEXIDINE GLUCONATE 2 % 1 PACK (2 CLOTHS) TOP SCH (19:34)
--- NOTE | 2017-02-16 10:40 | DEATH SUM ---
Summary Demographics Date Pronounced : Feb 15, 2017 Time Of : 21:15 Preliminary Cause of : Other (Massive ischemic stroke.) Chacorta Torres MD Feb 16, 2017 10:40
--- NOTE | 2017-02-16 10:43 | HHI.DS ---
Discharge Summary Admission Date Feb 13, 2017 at 11:29 Discharge Date: Feb 15, 2017 Admitting Diagnosis Left MCA infart, dehydration, hypernatremia (1) Left acute arterial ischemic stroke, MCA (middle cerebral artery) ICD Code: I63.512 - Cerebral infarction due to unspecified occlusion or stenosis of left middle cerebral artery Diagnosis: Principal Status: Acute (2) Acute hypernatremia ICD Code: E87.0 - Hyperosmolality and hypernatremia Diagnosis: Principal Status: Acute (3) Acute renal failure ICD Code: N17.9 - Acute kidney failure, unspecified Diagnosis: Principal Status: Acute (4) Leukocytosis ICD Code: D72.829 - Elevated white blood cell count, unspecified Diagnosis: Principal Status: Acute Brief History Nonverbal, dishevelled man found at wellness check after not being seen for 5 days. Unable to move right side. CT head reveals several day old left hemispheric stroke. Found in urine and unable to follow commands. No additional information available, no family. CBC/BMP: 02/14/17 1826 02/15/17 0353 Significant Findings Laboratory Tests Test 02/13/17 12:48 02/13/17 14:30 02/13/17 23:48 02/14/17 04:20 Lactic Acid Level 2.4 mmol/L (0.4-2.0) White Blood Count 22.1 TH/MM3 (4.0-11.0) 19.1 TH/MM3 (4.0-11.0) Red Blood Count 6.01 MIL/MM3 (4.50-5.90) Hemoglobin 18.0 GM/DL (13.0-17.0) 17.2 GM/DL (13.0-17.0) Hematocrit 55.2 % (39.0-51.0) 51.4 % (39.0-51.0) Platelet Count 124 TH/MM3 (150-450) 128 TH/MM3 (150-450) Neutrophils (%) (Auto) 77.7 % (16.0-70.0) 78.9 % (16.0-70.0) Lymphocytes (%) (Auto) 7.8 % (9.0-44.0) 8.6 % (9.0-44.0) Monocytes (%) (Auto) 14.3 % (0.0-8.0) 12.5 % (0.0-8.0) Neutrophils # (Auto) 17.2 TH/MM3 (1.8-7.7) 15.1 TH/MM3 (1.8-7.7) Monocytes # (Auto) 3.2 TH/MM3 (0-0.9) 2.4 TH/MM3 (0-0.9) Neutrophils % (Manual) 77 % (16-70) Neutrophils # (Manual) 17.2 TH/MM3 (1.8-7.7) Platelet Estimate LOW (NORMAL) LOW (NORMAL) Ovalocytes 1+ (NORMAL) Blood Urea Nitrogen 50 MG/DL (7-18) Random Glucose 113 MG/DL (74-106) Calcium Level 8.1 MG/DL (8.5-10.1) Phosphorus Level 1.8 MG/DL (2.5-4.9) Magnesium Level 2.9 MG/DL (1.5-2.5) Sodium Level 156 MEQ/L (136-145) Chloride Level 125 MEQ/L (98-107) Estimat Glomerular Filtration Rate 80 ML/MIN (>89) Triglycerides Level 153 MG/DL (42-150) HDL Cholesterol 38.2 MG/DL (40.0-60.0) Test 02/14/17 18:26 02/15/17 03:53 02/15/17 04:22 White Blood Count 16.1 TH/MM3 (4.0-11.0) Platelet Count 114 TH/MM3 (150-450) Neutrophils (%) (Auto) 75.3 % (16.0-70.0) Monocytes (%) (Auto) 13.5 % (0.0-8.0) Neutrophils # (Auto) 12.1 TH/MM3 (1.8-7.7) Monocytes # (Auto) 2.2 TH/MM3 (0-0.9) Neutrophils % (Manual) 88 % (16-70) Lymphocytes % 5 % (9-44) Neutrophils # (Manual) 14.2 TH/MM3 (1.8-7.7) Platelet Estimate LOW (NORMAL) Ovalocytes 1+ (NORMAL) Blood Urea Nitrogen 38 MG/DL (7-18) Random Glucose 138 MG/DL (74-106) Calcium Level 8.2 MG/DL (8.5-10.1) Sodium Level 161 MEQ/L (136-145) Chloride Level 128 MEQ/L (98-107) Estimat Glomerular Filtration Rate 75 ML/MIN (>89) Arterial Blood pH 7.50 (7.380-7.420) Arterial Blood Partial Pressure CO2 31 mmHg (38-42) Arterial Blood Oxygen Content 21.5 Vol % (12.0-20.0) Blood Gas Hemoglobin 16.7 G/DL (12.0-16.0) Imaging CT head - Left hemispheric stroke. MRI head: Left Stroke PE at Discharge . Transfer Summary Elderly man found down at home 3-4 days after ischemic left hemispheric stroke. Progressed to basal ganglia hemorrhage. Brother made him DNR comfort status. He naturally at 2115 hours on 02/15/17. Hospital Course Nonverbal, dishevelled man found at wellness check after not being seen for 5 days. Unable to move right side. CT head reveals several day old left hemispheric stroke. Found in urine and unable to follow commands. No additional information available, no family. 02/14: Left internal and external carotid arteries completely occluded ipsilateral to large MCA infarction. No improvement. Cerebral edema present on CT. 02/15: Deteriorating respiratory status. I had a lengthy talk with the patient' s brother this morning who stated that the patient would not want to be placed on a ventilator or kept alive artificially after a debilitating stroke - which this certainly is. He states that the patient is right handed, further clarifying that this is a dominant hemisphere stroke. Brain MRI and CT today demonstrate worsening swelling a hemorrhage in the basal ganglia left side. This is likely a fatal stroke. His brother Emiliano is aware that he is critically ill. Pt Condition on Discharge: Deteriorating Chacorta Torres MD Feb 16, 2017 10:43
== END 2017-02-15 23:03 | disposition expired | DRG 64 ==
LOC: NEPC 09:22 → NEDA 11:29 → EDBD 11:29 → N03B 13:35
PROVIDERS: ADMIT Hospitalist; ATTEND Hospitalist
DX: I63.512 Cerebral infarction due to unspecified occlusion or stenosis of left middle cerebral artery (principal); G93.6 Cerebral edema; N17.9 Acute kidney failure, unspecified; E87.0 Hyperosmolality and hypernatremia; G81.91 Hemiplegia, unspecified affecting right dominant side; R29.810 Facial weakness; R47.01 Aphasia; D75.1 Secondary polycythemia; Z66 Do not resuscitate; I65.22 Occlusion and stenosis of left carotid artery; E83.39 Other disorders of phosphorus metabolism; E86.0 Dehydration; R06.82 Tachypnea, not elsewhere classified; R00.0 Tachycardia, unspecified
CPT/HCPCS: 36600; 51702; 70450; 70544; 70551; 71010; 74000; 80048; 80053; 80061; 81001; 82550; 82805; 82948; 83036; 83540; 83550; 83605; 83735; 84100; 84466; 84484; 85007; 85025; 85027; 85610; 85730; 87040; 87641; 93005; 93306; 93880; J2270; J3480; J7030; J7120